=== PATIENT | male | born 1945 | race Caucasian/White ===

== ENCOUNTER → 2016-11-26 | Outpatient (CLI) | payer BC ==
[~2016-11-26] MED LIST: ALBU1AER9 INH; FLUT0.15 NAE; HYDR-5688 PO; LEVO150T9 PO; MONT1TAB3 PO; MULT-506 PO; SULF800T23 PO; SYMIN160 INH
--- NOTE | 2016-11-26 10:34 | DIAGNOSTIC IMAGING REPORT ---
CHEST 2 VIEWS ROUTINE HISTORY: R05 [id number] COMPARISON: Chest CT 10/28/2016 and chest x-ray 09/21/2013. FINDINGS: Multiple old, healed left rib fractures. Postoperative changes at the old, healed left clavicle fracture. No focal lung consolidations to suggest pneumonia. No evidence for pulmonary edema. The heart is stable in size. No pleural effusions. No pneumothorax. Faint nodular density within the right lung base on the frontal view likely represents a nipple shadow. IMPRESSION: No significant change compared to the prior study. No acute process. Electronically signed by: Napoleon Fishman M.D. 11/26/2016 10:33 AM Dictated Date/Time: 11/26/2016 10:31 AM
== END | disposition home or self-care (01) ==
LOC: C.RAD1850 10:15
PROVIDERS: ATTEND Internal Medicine Pulmonary Disease
DX: R05 Cough (principal)

== ENCOUNTER → 2017-02-03 | Outpatient (CLI) | payer BC ==
[2017-02-03 15:34] LABS: THYROID STIMULATING HORMONE 0.953 uIu/ml (0.300-4.500)
== END | disposition home or self-care (01) ==
LOC: C.LAB1850 13:34
PROVIDERS: ATTEND Family Medicine
DX: R94.6 Abnormal results of thyroid function studies (principal); R20.0 Anesthesia of skin

== ENCOUNTER → 2017-03-23 | Outpatient (CLI) | payer BC ==
[2017-03-23 16:35] LABS: BASO % 0.5 %; BASO ABS # 0.05 K/uL (0-0.2); COMPLETE YES; EOS % 2.4 %; HEMATOCRIT 45.3 % (42-52); IG% 0.3 %; LYMPH % 22.1 %; LYMPH ABS # 2.35 K/uL (1.2-3.4); MEAN CELL VOLUME 92.8 fL (80-100); MEAN CORPUSCULAR HEMOGLOBIN 30.7 pg (25-34); MEAN CORPUSCULAR HGB CONC 33.1 g/dl (32-36); MEAN PLATELET VOLUME 10.5 fL (7.4-10.4); MONO % 8.2 %; NEUT % 66.5 %; PLATELET COUNT 287 K/uL (130-400); RED BLOOD COUNT 4.88 M/uL (4.7-6.1); WHITE BLOOD COUNT 10.65 K/uL (4.8-10.8)
[2017-03-23 16:56] LABS: BLOOD UREA NITROGEN 19 mg/dl (7-18); BUN/CREATININE RATIO 14.6 (10-20); CALCIUM 8.7 mg/dl (8.5-10.1); CARBON DIOXIDE 30 mmol/L (21-32); CHLORIDE 108 mmol/L (98-107); GLUCOSE 130 mg/dl (70-99); POTASSIUM 4.4 mmol/L (3.5-5.1); SODIUM 141 mmol/L (136-145)
== END | disposition home or self-care (01) ==
LOC: C.LAB 16:11
PROVIDERS: ATTEND Surgery
DX: Z01.810 Encounter for preprocedural cardiovascular examination (principal); Z01.812 Encounter for preprocedural laboratory examination; K42.9 Umbilical hernia without obstruction or gangrene; I49.1 Atrial premature depolarization

== ENCOUNTER → 2017-03-25 | Day surgery (SDC) | payer BC ==
[2017-03-16 12:05] VITALS: Ht 182.9 cm; Wt 92.3 kg
[~2017-03-25] VITALS: Ht 182.9 cm; Wt 92.3 kg
[~2017-03-25] MED LIST changes: +ATROPINE SULFATE 0.1 MG/ML 5ML SYR IV PRN; +BUPIVACAINE/EPINEPHRINE 0.5% MPF 1:200,000 30 ML VIAL ONE; +CLINDAMYCIN PHOS 150 MG/ML 2 ML VIAL IV SCH; +DEXAMETHASONE SOD INJ 4 MG/ML VIAL ONE; +DiphenhydrAMINE HCL 50 MG/ML VIAL ONE; +EpHEDrine SULFATE INJ 50 MG/ML AMP IV PRN; +FENTANYL CITRATE INJ 50 MCG/1 ML 2 ML VIAL IV PRN; +FENTANYL CITRATE INJ 50 MCG/1 ML 2 ML VIAL ONE; +HYDROCODONE/ACETAMOPHEN 5/325MG TAB PO PRN; +LACTATED RINGER'S 1000ML 1,000 ML IV SCH; +LIDOCAINE HCL 2% 2 ML VIAL (20MG/ML) ONE; +MIDAZOLAM HCL 1 MG/ML 2ML VIAL ONE; +ONDANSETRON INJ 2 MG/ML 2 ML VIAL IV PRN; +ONDANSETRON INJ 2 MG/ML 2 ML VIAL ONE; +PROPOFOL IV EMULSION 10 MG/ML 20 ML VIAL IV ONE; +SODIUM CHLORIDE 0.9% 1000ML 1,000 ML IV SCH
--- NOTE | 2017-03-25 06:52 | History & Physical Bridge Note ---
H&P Re-Evaluation Bridge Note: I have examined the patient, reviewed the History & Physical and in the interval since the performance of the History & Physical I have noted the following changes of clinical significance: No changes noted
--- NOTE | 2017-03-25 07:54 | Discharge Instructions ---
Discharge Instructions Date of Service March 25, 2017. Admission Reason for Admission: Umbilical Hernia Discharge Discharge Diagnosis / Problem: Umbilical Hernia Discharge Goals Goal(s): Decrease discomfort, Improve function Activity Recommendations Activity Limitations: as noted below Lifting Limitations: no more than 10 pounds Exercise/Sports Limitations: until after follow-up appointment May Resume Sexual Activity: after follow-up appointment Shower/Bathe: tomorrow . Instructions / Follow-Up Instructions / Follow-Up Please follow-up with Dr. Noriega in the office in 1-2 weeks. Please call to make an appointment if you do not have one already. Any questions or concerns please call the office at [phone]. Current Hospital Diet Patient's current hospital diet: Discharge Diet Recommended Diet: Regular Diet Procedures Procedures Performed: Umbilical Hernia Open Repair Pending Studies Studies pending at discharge: no Medical Emergencies . Who to Call and When: Medical Emergencies: If at any time you feel your situation is an emergency, please call 911 immediately. . Non-Emergent Contact Non-Emergency issues call your: Primary Care Provider, Surgeon Call Non-Emergent contact if: temperature is above 101.5, your pain is not controlled, wound has increased drainage, wound has increased redness . "Provider Documentation" section prepared by Fiona Mcduffie. . VTE Core Measure Inpt VTE Proph given/why not?: SCD's [place] Drug Monitoring Program Search Results: patient reviewed within database, no issues identified
--- NOTE | 2017-03-25 08:00 | [facility] Operative Report ---
Operative Report Operative Date March 25, 2017. Pre-Operative Diagnosis Umbilical Hernia Post-Operative Diagnosis same Procedure(s) Performed umbilical hernia repair-no mesh Surgeon Dr. Noriega Geographical Historian Surgeon(s) Darren Mcduffie PA-C Estimated Blood Loss 5ml Findings small umbilical hernia with fat incarceration Specimens none per surgeon Anesthesia mac Complication(s) None Disposition Recovery Room / PACU I attest to the content of the Intraoperative Record and any orders documented therein. Any exceptions are noted below.
--- NOTE | 2017-03-25 08:33 | OPERATIVE REPORT ---
DATE OF OPERATION: 03/25/2017 PREOPERATIVE DIAGNOSIS: Umbilical hernia. POSTOPERATIVE DIAGNOSIS: Same with fat incarceration. PROCEDURE PERFORMED: Open umbilical hernia repair without mesh. SURGEON: Dr. Noriega. FIRE MANAGEMENT TECHNICIAN: Fiona Mcduffie PA-C. ESTIMATED BLOOD LOSS: Approximately 5 mL. COMPLICATIONS: No immediate. OPERATIVE NOTE: After informed consent was obtained, the patient was taken to the operating suite and placed in supine position. After successful placement of laryngeal mask airway the abdomen was shaved and sterilely prepped and draped in usual fashion. Curvilinear infraumbilical incision was made with a 15 blade scalpel. This was carried down through the soft tissue using electrocautery. We immediately encountered hernia sac which we opened. There was preperitoneal fat incarcerated within it. The defect was actually just inferior to the umbilical stalk. We therefore did not have to take down the umbilicus itself. Because of the very small hernia defect we used electrocautery to remove the incarcerated fat. There was adequate hemostasis. We were able to dunk the remainder of the fat back through the small 0.5 cm defect. I then closed the defect using 0 Ethibond in a [id number] fashion. The wound was then thoroughly irrigated and closed in 2 layers using 3-0 Vicryl and 4-0 Monocryl. Marcaine was injected around the incision for postoperative analgesia and skin glue used as dressing. The patient was awakened and extubated, and transferred to recovery in stable condition. I attest to the content of the Intraoperative Record and any orders documented therein. Any exceptio ns are noted below.
--- NOTE | 2017-03-25 08:49 | Anesthesia Progress Nt - [facility] ---
Anesthesia Post Op Note Date & Time March 25, 2017 at 08:49 Vital Signs Pain Intensity: 5 Vital Signs Past 12 Hours Date Time Temp Pulse Resp B/P Pulse Ox O2 Delivery O2 Flow Rate FiO2 03/25/17 07:50 36.6 56 12 129/79 96 Mask 15 03/25/17 06:27 36.7 58 16 138/85 95 Room Air Notes Mental Status: alert / awake / arousable, participated in evaluation Pt Amnestic to Procedure: Yes Nausea / Vomiting: adequately controlled Pain: adequately controlled Airway Patency, RR, SpO2: stable & adequate BP & HR: stable & adequate Hydration State: stable & adequate Anesthetic Complications: no major complications apparent
[2017-03-25 09:09] VITALS: TEMP 36.2
[2017-03-25 09:33] VITALS: BP 125/75; PULSE 50; O2SAT 93
== END | disposition home or self-care (01) ==
LOC: X.SURG 06:06
PROVIDERS: ATTEND Surgery
DX: K42.9 Umbilical hernia without obstruction or gangrene (principal); J45.909 Unspecified asthma, uncomplicated; E03.9 Hypothyroidism, unspecified; Z86.010 Personal history of colon polyps

== ENCOUNTER → 2017-06-13 | Outpatient (CLI) | payer BC ==
[~2017-06-13] MED LIST changes: -ATROPINE SULFATE 0.1 MG/ML 5ML SYR IV PRN; -BUPIVACAINE/EPINEPHRINE 0.5% MPF 1:200,000 30 ML VIAL ONE; -CLINDAMYCIN PHOS 150 MG/ML 2 ML VIAL IV SCH; -DEXAMETHASONE SOD INJ 4 MG/ML VIAL ONE; -DiphenhydrAMINE HCL 50 MG/ML VIAL ONE; -EpHEDrine SULFATE INJ 50 MG/ML AMP IV PRN; -FENTANYL CITRATE INJ 50 MCG/1 ML 2 ML VIAL IV PRN; -FENTANYL CITRATE INJ 50 MCG/1 ML 2 ML VIAL ONE; -HYDROCODONE/ACETAMOPHEN 5/325MG TAB PO PRN; -LACTATED RINGER'S 1000ML 1,000 ML IV SCH; -LIDOCAINE HCL 2% 2 ML VIAL (20MG/ML) ONE; -MIDAZOLAM HCL 1 MG/ML 2ML VIAL ONE; -ONDANSETRON INJ 2 MG/ML 2 ML VIAL IV PRN; -ONDANSETRON INJ 2 MG/ML 2 ML VIAL ONE; -PROPOFOL IV EMULSION 10 MG/ML 20 ML VIAL IV ONE; -SODIUM CHLORIDE 0.9% 1000ML 1,000 ML IV SCH
--- NOTE | 2017-06-13 12:33 | DIAGNOSTIC IMAGING REPORT ---
MRI OF THE LUMBAR SPINE WITHOUT CONTRAST CLINICAL HISTORY: Ataxia. Bilateral lower extremity numbness. COMPARISON STUDY: CT of the abdomen and pelvis October 26, 2007. TECHNIQUE: Utilizing a 1.5 Kaylah magnet and dedicated coil, multiplanar, multiecho imaging of the lumbar spine was performed without IV contrast. FINDINGS: For purposes of numbering on this exam, the L5-S1 disc space is assigned to axial image 27 of 30. There is 4 mm anterolisthesis of L5 on S1 due to bilateral L5 pars defects. This is similar to CT of October 26, 2007. There is no intracanalicular mass or fluid collection. No suspicious marrow replacement is present. Conus terminates at the upper L1 level. Paravertebral soft tissues are unremarkable. There are bilateral parapelvic cysts. L1-2: The central canal and neural foramen are patent. L2-3: There is minimal disc bulge, ligamentous hypertrophy and facet arthrosis. The central canal and neural foramen are patent. L3-4: There is mild disc bulge with ligamentous hypertrophy and facet arthrosis. The central canal, lateral recesses and neural foramen are patent. L4-5: There is slight anterolisthesis likely due to facet arthrosis. There is minimal disc bulge. Severe facet arthrosis is present. The central canal and lateral recesses are patent. There is moderate left and mild right neural foraminal stenosis. L5-S1: There is grade I anterolisthesis. There is facet arthrosis. Central canal is patent. There is mild narrowing of the left neural foramen. There is a left paracentral annular tear. IMPRESSION: 1. Grade I anterolisthesis of L5 on S1 due to bilateral L5 pars defects. 2. Patent central canal. Mild multilevel degenerative disc disease with several mild disc bulges. 3. Severe facet arthrosis at L4-L5 with resultant moderate left and mild right neural foraminal stenosis. 3. Electronically signed by: Owen Voss M.D. 06/13/2017 12:32 PM Dictated Date/Time: 06/13/2017 12:26 PM
== END | disposition home or self-care (01) ==
LOC: C.MRIBC 10:44
PROVIDERS: ATTEND Psychiatry & Neurology Neurology
DX: R27.0 Ataxia, unspecified (principal); R20.0 Anesthesia of skin; M47.816 Spondylosis without myelopathy or radiculopathy, lumbar region; M53.86 Other specified dorsopathies, lumbar region

== ENCOUNTER → 2017-07-19 | Outpatient (CLI) | payer BC ==
[2017-07-19 12:10] LABS: BASO % 0.4 %; BASO ABS # 0.03 K/uL (0-0.2); COMPLETE YES; EOS % 5.2 %; HEMATOCRIT 44.8 % (42-52); IG% 0.4 %; LYMPH % 19.5 %; LYMPH ABS # 1.51 K/uL (1.2-3.4); MEAN CORPUSCULAR HEMOGLOBIN 30.2 pg (25-34); MEAN CORPUSCULAR HGB CONC 32.8 g/dl (32-36); MONO % 9.3 %; NEUT % 65.2 %; PLATELET COUNT 267 K/uL (130-400); RED BLOOD COUNT 4.87 M/uL (4.7-6.1); WHITE BLOOD COUNT 7.75 K/uL (4.8-10.8)
[2017-07-19 12:31] LABS: ALKALINE PHOSPHATASE 72 U/L (45-117); ALT/SGPT 38 U/L (12-78); AST/SGOT 25 U/L (15-37); BLOOD UREA NITROGEN 17 mg/dl (7-18); BUN/CREATININE RATIO 17.4 (10-20); CARBON DIOXIDE 30 mmol/L (21-32); CHLORIDE 104 mmol/L (98-107); CHOLESTEROL 170 mg/dl (0-200); GLUCOSE 117 mg/dl (70-99); POTASSIUM 4.3 mmol/L (3.5-5.1); SODIUM 138 mmol/L (136-145); TRIGLYCERIDES 184 mg/dl (0-150); VERY LOW DENSITY LIPOPROT CALC 37 mg/dl
[2017-07-19 12:43] LABS: ALB/GLOB RATIO 1.1 (0.9-2); HDL CHOLESTEROL 43 mg/dl; LDL CHOLESTEROL CALCULATED 90 mg/dl; THYROID STIMULATING HORMONE 0.858 uIu/ml (0.300-4.500)
== END | disposition home or self-care (01) ==
LOC: C.LAB1850 10:27
PROVIDERS: ATTEND Nurse Practitioner Family
DX: J45.909 Unspecified asthma, uncomplicated (principal); E03.9 Hypothyroidism, unspecified; E78.1 Pure hyperglyceridemia

== ENCOUNTER 2017-07-25 11:38 | Day surgery (SDC) | payer BC ==
[2017-07-21 11:20] VITALS: Ht 182.9 cm; Wt 91.4 kg
[~2017-07-25] VITALS: Ht 182.9 cm; Wt 91.4 kg
[~2017-07-25 11:38] MED LIST changes: -HYDR-5688 PO; +LACTATED RINGER'S 1000ML 1,000 ML IV SCH; -SULF800T23 PO
[2017-07-25 12:28] VITALS: BP 142/72; PULSE 48; TEMP 36.7; O2SAT 94
[2017-07-25] MEDS ORDERED: ATROPINE SULFATE 0.1 MG/ML 5ML SYR IV PRN ×2 (13:00→13:15)
[2017-07-25] MEDS ORDERED: ONDANSETRON INJ 2 MG/ML 2 ML VIAL IV PRN ×3 (13:00→15:15)
[2017-07-25] MEDS ORDERED: FENTANYL CITRATE INJ 50 MCG/1 ML 2 ML VIAL IV PRN ×2 (13:00→13:15)
[2017-07-25] MEDS ORDERED: EpHEDrine SULFATE INJ 50 MG/ML AMP IV PRN ×2 (13:00→13:15)
[2017-07-25] MEDS ORDERED: BUPIVACAINE/EPINEPHRINE 0.5% MPF 1:200,000 30 ML VIAL ONE (13:49)
[2017-07-25] MEDS ORDERED: SUCCINYLCHOLINE CHLORIDE 20 MG/ML 10 ML VIAL IV ONE (13:52)
[2017-07-25] MEDS ORDERED: NEOSTIGMINE METHYLSULFATE 5 MG/5 ML SYR ONE (13:52)
[2017-07-25] MEDS ORDERED: PROPOFOL IV EMULSION 10 MG/ML 20 ML VIAL IV ONE (13:52)
[2017-07-25] MEDS ORDERED: DEXAMETHASONE SOD INJ 4 MG/ML VIAL ONE (13:52)
[2017-07-25] MEDS ORDERED: LIDOCAINE HCL 2% 2 ML VIAL (20MG/ML) ONE (13:52)
[2017-07-25] MEDS ORDERED: GLYCOPYRROLATE INJ 0.2 MG/ML VIAL ONE ×2 (13:52→14:33)
[2017-07-25] MEDS ORDERED: FENTANYL CITRATE INJ 50 MCG/1 ML 2 ML VIAL ONE (13:52)
[2017-07-25] MEDS ORDERED: ONDANSETRON INJ 2 MG/ML 2 ML VIAL ONE (13:52)
[2017-07-25] MEDS ORDERED: PHENYLEPHRINE HCL INJ 10 MG/ML VIAL ONE (13:52)
[2017-07-25] MEDS ORDERED: ROCURONIUM BROMIDE 10 MG/ML 5 ML VIAL IV ONE (13:52)
[2017-07-25] MEDS ORDERED: EpHEDrine SULFATE INJ 50 MG/ML AMP ONE (13:52)
[2017-07-25] MEDS ORDERED: MIDAZOLAM HCL 1 MG/ML 2ML VIAL ONE (13:52)
--- NOTE | 2017-07-25 13:53 | [facility] Operative Report ---
Operative Report Operative Date Jul 25, 2017. Pre-Operative Diagnosis lymphoma/need for IV access Post-Operative Diagnosis same Procedure(s) Performed left subclavian mediport insertion under fluoro Surgeon josie Estimated Blood Loss 5 cc Findings essentially normal anatomy Anesthesia MAC Complication(s) None Disposition Recovery Room / PACU Description of Procedure After informed consent was obtained the patient was taken the operating suite and placed in supine position. Both arms were tucked and a rolled towel was placed between the shoulder blades. IV sedation was administered and titrated to effect. The left upper chest wall was sterilely prepped and draped usual fashion. I used plain Marcaine to create a field block over the area of the Mediport pocket as well as up to the periosteum of the left clavicle. A horizontal incision was made a 15 blade scalpel and carried down to the pectoralis fascia using electrocautery. Blunt finger dissection was used to create a small pocket to house the port itself. Then using an 18-gauge finder needle accessed left subclavian vein without difficulty. We advanced a guidewire under fluoroscopy. Originally it went up into the neck but under active fluoroscopy was able to withdraw it and gently advanced in the superior vena cava. We then removed the needle leaving the wire behind. I then advanced a vascular dilator with peel-away sheath over the guidewire again under fluoroscopy. We measured the catheter, connected it to the port itself and placed the port into the pocket. I then withdrew the guidewire as well as the vascular dilator leaving the sheath behind. We advanced the catheter into the peel-away sheath into the superior vena cava. We then peeled away the sheath leaving the catheter behind. The port itself flushed easily with heparin solution. We did flush prior to placement as well. We are also able to withdrawal dark venous blood without difficulty. We then irrigated the pocket. I secured the Mediport to the pectoralis fascia using #2 Ethibond with 3 point fixation. We then closed the wound in 2 layers using 3-0 Monocryl for the deep layer and 3-0 Monocryl for the skin. A sterile dressing was applied. Patient was awaken transferred recovery in stable condition. Postoperative portable chest x-ray is currently pending to verify catheter placement and rule out pneumothorax I attest to the content of the Intraoperative Record and any orders documented therein. Any exceptions are noted below.
[2017-07-25] MEDS ORDERED: CLINDAMYCIN IV 900 MG in DEXTROSE 5% ADD-VANTAGE 100ML 100 ML IV ONE (14:00)
--- NOTE | 2017-07-25 15:01 | [facility] Operative Report ---
Operative Report Operative Date Jul 25, 2017. 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 Procedure(s) Performed Umbilical Wound Exploration with Removal of Suture Granuloma, excision of Cutaneous Fistula. Surgeon Long Lines Operator Surgeon(s) Servando Almaraz PA-C Estimated Blood Loss 5ml Findings infected suture granuloma with associated cutaneous fistula. Specimens Culture set 1. Removal of suture granuloma abdomen for gram stain, routine c+s , anaerobic. Permenant- A. Umbilical Suture B. Umbilical Fistula Anesthesia MAC Disposition Recovery Room / PACU Description of Procedure After informed consent was obtained the patient was taken the operating suite placed in supine position. After successful placement of a laryngeal mask airway the umbilical area was shaved and sterilely prepped and draped in usual fashion. I Made an infraumbilical incision with 15 blade scalpel through his old recent scar line. We carried this down through the soft tissue using electrocautery down to the fascia. I then used a Rosette clamp come above the umbilicus. As we came through the newly attached umbilical stalk we encountered some purulent fluid associated with a large Ethibond suture knot. The arms of the suture had each created their own fistulous tract to the skin. There were 2 separate fistulous tracts associated with this granuloma. I removed the all the Ethibond sutures and thoroughly irrigated the wound. Despite the previous hernia repair being intact ( after removing the ethibond) I did oversew the area with an 0 PDS in simple interrupted fashion. We then excised the fistulous tracts with sharp knife excision full-thickness. On both the skin side as well as the subcutaneous side I closed either end of the fistulous tracts using 3-0 Monocryl in simple interrupted fashion. Copious amounts of irrigation were again used. I then reapproximated the umbilicus back to the fascia using 0 Vicryl in simple interrupted fashion. We then closed the wound with 3-0 Vicryl and 4-0 Monocryl for the skin. Marcaine was injected around for postoperative analgesia and a sterile dressing was applied. The suture that was removed was sent for Gram stain culture and sensitivity. The patient was awaken extubated and transferred recovery in stable condition I attest to the content of the Intraoperative Record and any orders documented therein. Any exceptions are noted below.
[2017-07-25] MEDS ORDERED: SODIUM CHLORIDE 0.9% 1000ML 1,000 ML IV SCH (15:04)
[2017-07-25] MEDS ORDERED: SULF800T23 PO (15:05)
[2017-07-25] MEDS ORDERED: HYDR-5688 PO (15:05)
--- NOTE | 2017-07-25 15:07 | Discharge Instructions ---
Discharge Instructions Date of Service Jul 25, 2017. Visit Reason for Visit: Non-Healing Surgical Wound -Umbilical Discharge Discharge Diagnosis / Problem: excision of foreign body/granuloma Discharge Goals Goal(s): Decrease discomfort Activity Recommendations Activity Limitations: as noted below Lifting Limitations: no more than 10 pounds Shower/Bathe: no limitations (ok to shower ocer bandage, it is waterproof, remove bandage in 2 days) Anesthesia . Post Anesthesia Instructions: If you have had General Anesthesia or IV Sedation: * Do not drive today. * Resume driving when surgeon permits. * Do not make important decisions or sign legal documents today. * Call surgeon for: 1. Temperature elevations greater than 101 degrees F. 2. Uncontrollable pain. 3. Excessive bleeding. 4. Persistent nausea and vomiting. 5. Medication intolerance (nausea, vomiting or rash). * For nausea and vomiting use only clear liquids such as: tea, soda, bouillon until nausea subsides, then gradually increase diet as tolerated. * If you have any concerns or questions, call your surgeon's office. If physician is unavailable and it is an emergency, call 911 or go to the nearest emergency room. . Instructions / Follow-Up Instructions / Follow-Up Dr. Noriega as planned, call [phone] for any questions Diet Recommendations Recommended Home Diet: no limitations Procedures Procedures Performed: Umbilical Wound Exploration with Removal of Suture Granuloma, excision of Cutaneous Fistula. Pending Studies Studies pending at discharge: no Medical Emergencies . Who to Call and When: Medical Emergencies: If at any time you feel your situation is an emergency, please call 911 immediately. . Non-Emergent Contact Non-Emergency issues call your: Surgeon Call Non-Emergent contact if: you have a fever, temperature is above 101.5, your pain is not controlled, wound has increased redness, you have any medication questions . . "Provider Documentation" section prepared by Davon Almaraz. .
[2017-07-25] MEDS ORDERED: HYDROCODONE/ACETAMOPHEN 5/325MG TAB PO PRN ×2 (15:15)
--- NOTE | 2017-07-25 15:50 | Anesthesiology Progress Note ---
Anesthesia Post Op Note Date & Time Jul 25, 2017 at 15:50 Vital Signs Pain Intensity: 4 Vital Signs Past 12 Hours Date Time Temp Pulse Resp B/P (MAP) Pulse Ox O2 Delivery O2 Flow Rate FiO2 07/25/17 15:30 65 16 126/61 93 Oxymask 10 07/25/17 15:20 60 19 129/72 94 Oxymask 10 07/25/17 15:10 68 15 134/91 93 Oxymask 10 07/25/17 15:04 36.1 75 16 147/77 95 Oxymask 10 07/25/17 12:28 36.7 48 18 142/72 (95) 94 Room Air Notes Mental Status: alert / awake / arousable, participated in evaluation Pt Amnestic to Procedure: Yes Nausea / Vomiting: adequately controlled Pain: adequately controlled Airway Patency, RR, SpO2: stable & adequate BP & HR: stable & adequate Hydration State: stable & adequate Anesthetic Complications: no major complications apparent
[2017-07-25 16:05] VITALS: BP 125/65; PULSE 53; TEMP 36.5; O2SAT 93
[2017-07-25 16:35] VITALS: BP 129/68; PULSE 81; TEMP 37.2; O2SAT 94
[2017-07-25 17:05] VITALS: BP 115/69; PULSE 65; TEMP 36.4; O2SAT 96
[2017-07-25] MEDS ORDERED: TAMSULOSIN HCL 0.4 MG CAP PO ONE (18:15)
== END 2017-07-25 18:50 | disposition home or self-care (01) ==
LOC: C.ACU 11:38
PROVIDERS: ATTEND Surgery
DX: T81.89XA Other complications of procedures, not elsewhere classified, initial encounter (principal); Y83.8 Other surgical procedures as the cause of abnormal reaction of the patient, or of later complication, without mention of misadventure at the time of the procedure; L98.8 Other specified disorders of the skin and subcutaneous tissue; J45.909 Unspecified asthma, uncomplicated; E78.1 Pure hyperglyceridemia; E03.9 Hypothyroidism, unspecified; E55.9 Vitamin D deficiency, unspecified; Z80.1 Family history of malignant neoplasm of trachea, bronchus and lung; Z82.49 Family history of ischemic heart disease and other diseases of the circulatory system; Z83.3 Family history of diabetes mellitus; Z79.899 Other long term (current) drug therapy

== ENCOUNTER → 2017-08-24 | Outpatient (CLI) | payer BC ==
[~2017-08-24] MED LIST changes: +HYDR-5688 PO; -LACTATED RINGER'S 1000ML 1,000 ML IV SCH; +SULF800T23 PO
--- NOTE | 2017-08-24 12:42 | DIAGNOSTIC IMAGING REPORT ---
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 FINDINGS: On the right, there is a thick walled, predominantly anechoic and likely cystic nodule measuring 23 x 20 x 16 mm. Given the clinical history, this could represent an abscess. A necrotic neoplasm could appear similar. On the left, there is a nonspecific hypoechoic 5 x 3 x 3 mm left parotid nodule. IMPRESSION: 1. Complex cystic thick walled right parotid nodule measuring 23 x 20 x 16 mm. 2. 5 mm hypoechoic left parotid gland nodule Electronically signed by: Juan Diego Hernandez M.D. 08/24/2017 12:40 PM Dictated Date/Time: 08/24/2017 12:30 PM
== END | disposition home or self-care (01) ==
LOC: C.ULTR 12:00
PROVIDERS: ATTEND Family Medicine
DX: K11.20 Sialoadenitis, unspecified (principal); K11.8 Other diseases of salivary glands

== ENCOUNTER → 2017-09-02 | Outpatient (CLI) | payer BC ==
[~2017-09-02] MED LIST changes: +OPTIRAY 320 IV PRN
--- NOTE | 2017-09-02 13:42 | DIAGNOSTIC IMAGING REPORT ---
SOFT TISSUE NECK WITH HISTORY: 72 years-old Male K11.8 Nodule of parotid glandf/u to nodule noted on ultrasound w follow-up study to assess right parotid lesion measuring up to 23 mm on comparison ultrasound COMPARISON: Ultrasound 08/24/2017 TECHNIQUE: Multiple axial CT images of the soft tissues of the neck were obtained following the intravenous administration of 93 mL Optiray 320. A dose lowering technique was used consistent with the principals of ALARA. FINDINGS: The oral pharynx and hypopharynx are patent. The vallecula and appear piriform sinuses are patent. Epiglottis, aryepiglottic folds and true vocal cords appear to be within normal limits. Subglottic airway is patent. There is a 5 x 5 x 6 mm lesion of the superficial left parotid gland on image 113 of series 3 which essentially fatty attenuating suggesting physiologic parotid lymph node. The left parotid is otherwise unremarkable. Evaluation of the right parotid gland is limited secondary to streak artifact from dental amalgam hardware. There is a thick-walled peripherally enhancing centrally low attenuating lesion of the superficial lobe right parotid gland, 1.0 x 1.1 x 2.3 cm in AP, transverse and craniocaudal dimensions as seen on image 158 of series 3. No associated calcifications identified. No erosion into adjacent structures. The bilateral submandibular and sublingual glands appear normal. Hudson tonsils are within normal limits. Mild prominence of the lingual tonsils. Heterogeneous soft tissue attenuating structure of the left nasopharynx and posterior left nasal choana is seen measuring 3.5 x 1.8 x 2.7 cm in AP, transverse and coronal caudal dimensions with smooth remodeling of the adjacent medial wall the left maxillary sinus. Mild/moderate bubbly secretions of the maxillary sinuses are noted. Moderate to severe frontal, sphenoid and ethmoid sinus disease. Mastoid air cells and middle ear cavities are clear. Multilevel degenerative changes of the cervical spine. Centrilobular emphysematous changes of the lung apices. Mild atrophy chronic plaquing of the carotid bulbs. Imaged intracranial structures are unremarkable. Multilevel degenerative changes of the cervical spine. IMPRESSION: 1. Limited evaluation of the right parotid gland secondary to prominent streak artifact from right mandibular dental amalgam. Within the limitations of the study, there is a 2.3 cm peripherally enhancing centrally low attenuating lesion again seen within the superficial gland. Differential considerations would include necrotic lymph node, benign mixed tumor, Warthin tumor among other etiologies. Further evaluation with tissue sampling recommended. 2. Nodule of the left superficial parotid lobe, 5 mm suggests physiologic lymph node. 3. Heterogeneous soft tissue attenuating lesion of the left nasopharynx and left posterior nasal choana measuring up to 3.5 cm suggests sinonasal polyp. Further evaluation with direct visualization is recommended. 4. Moderate to severe paranasal sinus disease as above. The above report was generated using voice recognition software. It may contain grammatical, syntax or spelling errors. Electronically signed by: Kirby Castaneda M.D. 09/02/2017 1:40 PM Dictated Date/Time: 09/02/2017 1:27 PM
== END | disposition home or self-care (01) ==
LOC: C.CTS 12:54
PROVIDERS: ATTEND Family Medicine
DX: K11.8 Other diseases of salivary glands (principal); R93.0 Abnormal findings on diagnostic imaging of skull and head, not elsewhere classified

== ENCOUNTER → 2017-09-08 | Outpatient (CLI) | payer BC ==
[~2017-09-08] MED LIST changes: -OPTIRAY 320 IV PRN
--- NOTE | 2017-09-08 11:05 | DIAGNOSTIC IMAGING REPORT ---
ULTRASOUND GUIDED FINE NEEDLE ASPIRATION OF RIGHT PAROTID GLAND MASS CLINICAL HISTORY: Right parotid gland mass. COMPARISON STUDY: Neck ultrasound August 24, [address] of the neck September 02, 2017. PROCEDURE: Sonography of the right parotid gland demonstrated the previously described right parotid gland complex cystic lesion. On this exam, this lesion measures approximately 1.4 x 1.3 cm. It previously measured approximately 1.8 x 1.5 cm. This has likely decreased in size. This was targeted for fine needle aspiration. The procedure, risks and benefits were discussed with the patient and informed written consent was obtained. The procedure was performed by Dr. Voss following a timeout. Skin was prepped and draped in sterile fashion and local anesthesia was achieved with 1% lidocaine. Under direct ultrasound guidance, 3 25-gauge fine needle aspirations of this lesion were performed. The second pass revealed cloudy, possibly purulent, material. An inflammatory process was preliminarily suspected by pathology. The patient tolerated the procedure well and no immediate complications were evident. IMPRESSION: Ultrasound-guided fine needle aspiration of complex 1.4 cm cystic right parotid gland lesion. Probable slight decrease in size of lesion since exam of August 24, 2017. Preliminary pathology results raise the possibility of an inflammatory/infectious process. Pending final pathology results, consideration could be given to short-term sonographic follow-up to ensure continued decrease in size/resolution. Electronically signed by: Owen Voss M.D. 09/08/2017 11:04 AM Dictated Date/Time: 09/08/2017 10:57 AM
== END | disposition home or self-care (01) ==
LOC: C.ULTR 09:30
DX: K11.8 Other diseases of salivary glands (principal)

== ENCOUNTER → 2017-10-03 | Outpatient (CLI) | payer BC ==
--- NOTE | 2017-10-03 12:12 | DIAGNOSTIC IMAGING REPORT ---
FUSION CT SINUSES W/O HISTORY: 72 years-old Male J32.9 Chronic sinusitis history of prior sinus surgery COMPARISON: CT head 09/25/2013, CT maxillofacial 02/10/2012 TECHNIQUE: Multiple axial CT images of the paranasal sinuses were obtained without IV contrast. [employer] axial images also obtained. A dose lowering technique was used consistent with the principals of HARI. FINDINGS: Mastoid air cells and middle ear cavities are clear. Postoperative changes compatible with bilateral maxillary antrostomy. Mild mucoperiosteal thickening of the left with mild to moderate medial periosteal thickening on the right maxillary sinuses. There is mild mucosal thickening of the left frontal sinus, notably inferiorly. There is severe sinus disease of the right frontal sinus which is nearly completely opacified with dense likely inspissated mucosal debris. Moderate mucosal thickening is noted within the ethmoid air cells. Sphenoethmoidal recesses are patent. There is mucosal thickening of the bilateral frontoethmoidal recesses. Bilateral maxillary ostiomeatal units are widely patent. No Estuardo cell or large domingo bullosa identified. The melyssa ethan appears normal. Soft tissue attenuating structure measuring 2.8 x 1.4 x 1.8 cm involves the left posterior nasal turbinate extending into the left posterior nasal aperture as seen on image 180 of series 3 suggesting a sinonasal polyp. Sigmoidal curvature of the nasal septum is noted. No facial bone fracture or dislocation identified. Degenerative changes of the cervical spine are noted. Image intracranial structures demonstrate no acute amount. Mild to moderate cerebellar and cerebral atrophy is noted. The soft tissues are unremarkable. There has been prior bilateral cataract repair. IMPRESSION: 1. Prior bilateral maxillary antrostomy. 2. Chronic bilateral paranasal sinus disease as above with severe near complete opacification of the right frontal sinus containing dense material, likely inspissated mucosal debris. 3. Soft tissue attenuating lesion of the left nasopharynx as above measuring up to 2.8 cm extends into the left posterior nasal aperture suggesting a sinonasal polyp. Correlate with direct visualization. The above report was generated using voice recognition software. It may contain grammatical, syntax or spelling errors. Electronically signed by: Kirby Castaneda M.D. 10/03/2017 12:11 PM Dictated Date/Time: 10/03/2017 12:00 PM
== END | disposition home or self-care (01) ==
LOC: C.CTS 11:12
DX: J32.9 Chronic sinusitis, unspecified (principal); J34.89 Other specified disorders of nose and nasal sinuses

== ENCOUNTER → 2017-12-19 | Outpatient (CLI) | payer BC ==
[~2017-12-19] MED LIST changes: +OMEG10007 PO; +VNTHFA/IN INH
--- NOTE | 2017-12-19 11:05 | DIAGNOSTIC IMAGING REPORT ---
NECK ULTRASOUND HISTORY: Right parotid gland Lesion. Follow-up. COMPARISON: Right parotid ultrasound-guided FNA 09/08/2017. FINDINGS: Real-time sonographic imaging of the bilateral parotid glands was performed. No masses or fluid collections identified. Specifically, the abnormality within the right parotid gland has resolved. IMPRESSION: Normal right parotid gland. Electronically signed by: Napoleon Fishman M.D. 12/19/2017 11:03 AM Dictated Date/Time: 12/19/2017 11:01 AM
== END | disposition home or self-care (01) ==
LOC: C.ULTR 10:03
DX: J32.9 Chronic sinusitis, unspecified (principal)

== ENCOUNTER → 2017-12-24 | Outpatient (CLI) | payer BC ==
[~2017-12-24] MED LIST changes: -ALBU1AER9 INH; -HYDR-5688 PO; -SULF800T23 PO
[2017-12-24 10:23] LABS: BASO % 0.4 %; BASO ABS # 0.04 K/uL (0-0.2); EOS % 1.6 %; EOS ABS # 0.17 K/uL (0-0.5); HEMATOCRIT 45.9 % (42-52); HEMOGLOBIN 15.1 g/dL (14.0-18.0); IG# 0.04 K/uL (0.00-0.02); LYMPH % 22.1 %; LYMPH ABS # 2.32 K/uL (1.2-3.4); MEAN CELL VOLUME 93.7 fL (80-100); MEAN CORPUSCULAR HEMOGLOBIN 30.8 pg (25-34); MEAN CORPUSCULAR HGB CONC 32.9 g/dl (32-36); MEAN PLATELET VOLUME 11.1 fL (7.4-10.4); MONO % 10.6 %; MONO ABS # 1.11 K/uL (0.11-0.59); NEUT % 64.9 %; NEUT ABS # 6.81 K/uL (1.4-6.5); PLATELET COUNT 278 K/uL (130-400); RED CELL DISTRIBUTION WIDTH SD 44.8 fL (36.4-46.3); WHITE BLOOD COUNT 10.49 K/uL (4.8-10.8)
[2017-12-24 10:29] LABS: POTASSIUM 3.6 mmol/L (3.5-5.1)
[2017-12-24 10:37] LABS: PTT PATIENT 22.9 SECONDS (21.0-31.0)
== END ==
LOC: C.LAB1850 07:57
DX: Z01.818 Encounter for other preprocedural examination (principal)

== ENCOUNTER → 2017-12-26 | Day surgery (SDC) | payer BC ==
[2017-12-19 14:01] VITALS: Ht 182.9 cm; Wt 92.7 kg
[~2017-12-26] VITALS: Ht 182.9 cm; Wt 92.7 kg
[~2017-12-26] MED LIST changes: +ACETAMINOPHEN 1000 MG/100 ML IV IV ONE; +ATROPINE SULFATE 0.1 MG/ML 5ML SYR IV PRN; +CLINDAMYCIN 900MG IV SCH; +CLINDAMYCIN IV 900 MG in DEXTROSE 5% 50ML 44 ML IV SCH; +DEXAMETHASONE SOD INJ 4 MG/ML VIAL ONE; +EpHEDrine SULFATE INJ 50 MG/ML AMP IV PRN; +EpHEDrine SULFATE INJ 50 MG/ML AMP ONE; +EpINEphrine INJ 1MG/ML AMP 1 MG/ML AMP ONE; +FENTANYL CITRATE INJ 50 MCG/1 ML 2 ML VIAL IV PRN; +FENTANYL CITRATE INJ 50 MCG/1 ML 2 ML VIAL ONE; +GLYCOPYRROLATE INJ 0.2 MG/ML VIAL ONE; +HYDROCODONE/ACETAMIN 5/325MG TAB PO PRN; +LIDOCAINE 4% MPF SOAK 5 ML = 1 DOSE TOP ONE; +LIDOCAINE HCL 2% 2 ML VIAL (20MG/ML) ONE; +LIDOCAINE/EPINEPHRINE 1% 20 ML VIAL ONE; +MIDAZOLAM HCL 1 MG/ML 2ML VIAL ONE; +NEOSTIGMINE METHYLSULFATE 5 MG/5 ML SYR ONE; +ONDANSETRON INJ 2 MG/ML 2 ML VIAL IV PRN; +ONDANSETRON INJ 2 MG/ML 2 ML VIAL ONE; +OXYMETAZOLINE HCL 0.05% NA SPR 15 ML BTL PRN; +OXYMETAZOLINE HCL 0.05% NA SPR 15 ML BTL SCH; +PROPOFOL IV EMULSION 10 MG/ML 20 ML VIAL IV ONE; +SODIUM CHLORIDE 0.9% INJ 10 ML VIAL ONE; +TRIAMCINOLONE ACET 40 MG/ML VIAL ONE
--- NOTE | 2017-12-26 13:14 | History and Physical: Surg Cnt ---
History & Physical Date Dec 26, 2017. Chief Complaint CHRONIC SINUSITIS, SEPTAL DEVIATION, BILATERAL INFERIOR TURBINATE HYPERTROPHY S/ P B FESS IN THE PAST WITH DR. LINK History of Present Illness The patient is a 72 year old male with complaints of CHRONIC SINUSITIS, SEPTAL DEVIATION, BILATERAL INFERIOR TURBINATE HYPERTROPHY S/P B FESS IN THE PAST WITH DR. LINK WITH SYMPTOMS DESPITE [employer] RX. Past Medical/Surgical History PMH: ABOVE, ALLERGIC RHINITIS, ASTHMA, PAROTID MASS, VITAMIN D DEFICIENCY, SPONTANEOUS PNEUMOTHORAX PSH: ABOVE, S/P UMBILICAL HERNIA REPAIR, S/P KNEE SURGERY, S/P SHOULDER SURGERY Additional History Hepatic Disease: No Endocrine Disorder: No Kidney Disease: No Hypertension: No Heart Disease: No Bleeding Tendencies: No Infectious Diseases: No Allergies Coded Allergies: Amoxicillin (Verified Allergy, Unknown, ANAPHYLAXIS, 12/26/17) Penicillins (Unverified Allergy, Unknown, ANAPHYLAXIS, 12/26/17) Home Medications Scheduled Budesonide/Formoterol Fumarate (Symbicort 160/4.5 Inhaler), 2 PUFFS INH BID Fluticasone Propionate (Nasal) (Flonase Allergy Relief), 1 SPRAY AMNJINDER BID Levothyroxine Sodium (Levothyroxine Sodium), 150 MCG PO QAM Montelukast Sodium (Singulair), 10 MG PO HS Multivitamin (Multivitamin), 1 TAB PO LUNCH Scheduled PRN Albuterol Hfa (Ventolin Hfa), 2-4 PUFFS INH Q6H PRN for SOB/Wheezing Miscellaneous Medications Fish Oil ([place]-3), 1 CAP PO Physical Examination Skin: warm/dry, no rash Eyes: normal inspection, EOMI, sclerae normal ENT: + pertinent finding (L DNS, R>L ITH, L>R NASAL POLYPOSIS) Head: normocephalic, atraumatic Neck: supple, no adenopathy, trachea midline Respiratory/Chest: lungs clear, normal breath sounds, no respiratory distress Cardiovascular: regular rate, rhythm, no edema, no murmur Neurologic/Psych: no motor/sensory deficits, alert, normal reflexes, oriented x 3 Diagnosis CHRONIC SINUSITIS, SEPTAL DEVIATION, BILATERAL INFERIOR TURBINATE HYPERTROPHY S/ P B FESS IN THE PAST WITH DR. LINK Plan of Treatment IMAGE-GUIDED REVISION B FESS/SEPTOPLASTY/INFERIOR TURBINATE REDUCTION
--- NOTE | 2017-12-26 14:22 | [facility] Operative Report ---
Operative Report Operative Date Dec 26, 2017. Pre-Operative Diagnosis Chronic Sinusitis, Allergic Rhinitis, Acquired Deviated Nasal Septum, Hypertrophy of Nasal Turbinates Post-Operative Diagnosis Same Procedure(s) Performed Image Guided Revision Bilateral Endoscopic Sinus Surgery, Septoplasty, Bilateral Inferior Turbinate Reduction Surgeon Dr. Petty Molded Goods Operator Surgeon(s) None Estimated Blood Loss 10 mL Findings 1. LARGE POLYP EMANATING FROM THE MEDIAL ASPECT OF THE LEFT MIDDLE TURBINATE AND COMPLETELY FILLING THE POSTERIOR NASAL CAVITY AND NASOPHARYNX 2. POLYP IN RIGHT ETHMOID SINUS 3. MODERATE L DNS 4. R>L ITH 5. MUCOSAL THICKENING BILATERAL FRONTAL AND ETHMOID SINUSES WITH PURULENCE WITHIN RIGHT FRONTAL SINUS Specimens A. Left Nasal Polyp B. Right Ethmoid Polyp Anesthesia Type General I attest to the content of the Intraoperative Record and any orders documented therein. Any exceptions are noted below.
--- NOTE | 2017-12-26 14:27 | Discharge Instructions ---
Discharge Instructions Date of Service Dec 26, 2017. Admission Reason for Admission: Chronic Sinusitis, Allergic Rhinitis Discharge Discharge Diagnosis / Problem: SAME Discharge Goals Goal(s): Therapeutic intervention Activity Recommendations Activity Limitations: as noted below LIGHT ACTIVITY AND NO NOSE BLOWING FOR 2 WEEKS; NO DRIVING WHILE ON [place]CO . Current Hospital Diet Patient's current hospital diet: Discharge Diet Recommended Diet: Regular Diet Procedures Procedures Performed: Image Guided Revision Bilateral Endoscopic Sinus Surgery, Septoplasty, Bilateral Inferior Turbinate Reduction Pending Studies Studies pending at discharge: no Medical Emergencies . Who to Call and When: Medical Emergencies: If at any time you feel your situation is an emergency, please call 911 immediately. . Non-Emergent Contact Non-Emergency issues call your: Surgeon . . "Provider Documentation" section prepared by Joe Petyt. . VTE Core Measure Inpt VTE Proph given/why not?: SCD's
[2017-12-26 15:10] VITALS: TEMP 36.7
--- NOTE | 2017-12-26 15:14 | OPERATIVE REPORT ---
DATE OF OPERATION: 12/26/2017 PREOPERATIVE DIAGNOSES: 1. Chronic polypoid rhinosinusitis. 2. Left septal deviation. 3. Right greater than left inferior turbinate hypertrophy. POSTOPERATIVE DIAGNOSES: 1. Chronic polypoid rhinosinusitis. 2. Left septal deviation. 3. Right greater than left inferior turbinate hypertrophy. PROCEDURES: Image guided bilateral endoscopic sinus surgery consisting of: 1. Bilateral revision complete ethmoidectomies. 2. Bilateral revision frontal sinusotomies. 3. Revision septoplasty. 4. Revision bilateral inferior turbinate outfracture and turbinoplasty. SURGEON: Dr. Petty. ANESTHESIA: General endotracheal. ESTIMATED BLOOD LOSS: 10 mL. FINDINGS: 1. Large left posterior nasal cavity polyp emanating from the medial aspect of the left middle turbinate completely blocking the nasal cavity and nasopharynx. 2. Right greater than left ethmoid polyposis. 3. Right frontal sinus purulence. 4. Moderate left septal deviation. 5. Right greater than left inferior turbinate hypertrophy. SPECIMENS: Left posterior nasal cavity polyp and right ethmoid sinus polyp sent separately for permanent pathological assessment. COMPLICATIONS: None. INDICATIONS FOR THE PROCEDURE: The patient is a very pleasant 72-year-old male with a history of chronic polypoid rhinosinusitis who underwent previous bilateral endoscopic sinus surgery, septoplasty and inferior turbinate reduction by Dr. Small in the past who has had recurrent disease with symptoms despite maximal medical therapy consisting of systemic antibiotics and steroids. Posttreatment CT scan of the sinuses revealed right greater than left frontal sinus disease as well as bilateral ethmoid sinus disease with a large polyp emanating off the medial aspect of the left middle turbinate and completely filling the posterior nasal cavity and blocking the choana on that side. In addition, the patient has left septal deviation, right greater than left inferior turbinate hypertrophy. He presents for the above-mentioned procedures on an outpatient elective basis. DESCRIPTION OF PROCEDURE: After informed consent has been obtained from the patient, the patient was wheeled to the operating room and placed on the operating table in supine position. Monitors were placed. After induction of general endotracheal anesthesia, the patient was prepped in the usual fashion for image guided bilateral endoscopic sinus surgery. The [email or web address] headset was placed over the forehead and was registered, calibrated and verified and used throughout the case. Lidocaine and epinephrine pledgets were placed in the bilateral nasal cavities and pressure applied. The left-sided pledgets were removed. There was a large polyp filling the entire nasal cavity posteriorly and blocking the entrance into the nasopharynx via the choana. This was injected with 1% lidocaine with 1:100,000 epinephrine. The patient had previous nasal antral window and maxillary antrostomy surgery on that side and the mucosa of the maxillary sinus was completely normal. He also had polyposis within the left ethmoid sinus and this was injected with 1% lidocaine with 1:100,000 epinephrine. A lidocaine and epinephrine pledget was then placed into the left middle meatus. On the right hand side, there was also polyposis involving the right ethmoid sinus which was injected with 1% lidocaine with 1:100,000 epinephrine. Lidocaine and epinephrine pledget was then placed into the right middle meatus. The left side pledget was removed. Straight Ronnie-Cut forceps and straight Blakesley forceps was used to remove a large portion of the posterior nasal cavity polyp which was sent off for permanent pathological assessment. Powered instrumentation was then used to remove the rest of the polypoid tissue completely removing it in its entirety and it seemed to emanate from the medial aspect of the middle turbinate. Therefore, the inferior and medial aspect of the middle turbinates were removed using powered instrumentation. A revision complete ethmoidectomy was then performed using powered instrumentation. Using a frontal sinus suction and image guidance, the left frontal sinus was cannulated. A 7 frontal sinus balloon was then inserted and inflated to 12 atmospheres of pressure in 2 different locations to dilate the right frontal recess tract. Polypoid tissue was removed using powered instrumentation. A lidocaine and epinephrine pledget was then placed into the left ethmoid cavity. The right side was then addressed in a similar fashion with similar intraoperative findings except there was not a polyp within the nasal cavity. Also, there was purulence within the right frontal sinus which was completely suctioned. The nasal septum was then injected with 1% lidocaine with 1:100,000 epinephrine. After allowing adequate time for vasoconstriction, a #15 scalpel was used to make a left Ray incision through which the left-sided mucoperichondrial mucoperiosteal flap was elevated. A #15 scalpel was then used to incise the quadrangular cartilage with care to preserve a 1.5 cm dorsal and caudal strut and the right-sided mucoperichondrial mucoperiosteal flap was elevated through this cartilaginous incision. A Deidra swivel knife was then used to remove the deviated portion of the quadrangular cartilage. [place] forceps was then used to remove septal bone, more posteriorly that was not causing the left nasal septal deviation superiorly. The septal cavity was then suctioned. The septum was found to be midline. The left Ray incision was closed with several simple interrupted 4-0 chromic sutures. A 4-0 plain gut suture on a Des needle was then used to perform a quilting stitch of the mucoperichondrial mucosa flaps bilaterally to help prevent septal hematoma. A Rodriguez elevator was then used to infracture and subsequently outfracture inferior turbinates bilaterally. These were injected with 1% lidocaine with 1:100,000 epinephrine. A 2.0 mm turbinate blade using powered instrumentation was then used to perform bilateral inferior turbinoplasties in the submucosal fashion. The sinonasal cavities were then suctioned. A Stammberger nasal dressing mixed 1:1 with Kenalog 40 mg per 1 mL was then instilled into the ethmoid sinuses and frontoethmoidal recesses. The nasal cavity and nasopharynx were then suctioned. An orogastric tube was placed and the stomach was suctioned free of air and stomach contents. This marked the end of the case. The patient tolerated the procedure well. There were no apparent complications. The patient was extubated and transferred to recovery room in stable condition. I attest to the content of the Intraoperative Record and any orders documented therein. Any exception s are noted below.
--- NOTE | 2017-12-26 15:32 | Anesthesiology Progress Note ---
Anesthesia Post Op Note Date & Time Dec 26, 2017 at 15:31 Vital Signs Pain Intensity: 0 Vital Signs Past 12 Hours Date Time Temp Pulse Resp B/P (MAP) Pulse Ox O2 Delivery O2 Flow Rate FiO2 12/26/17 15:06 134/82 12/26/17 15:04 63 14 91 12/26/17 15:04 61 14 12/26/17 15:03 37.2 58 16 139/80 93 Room Air 12/26/17 15:01 139/80 12/26/17 14:59 59 16 12/26/17 14:59 59 16 92 12/26/17 14:56 151/82 12/26/17 14:54 48 10 95 12/26/17 14:54 51 10 12/26/17 14:51 147/90 12/26/17 14:49 55 4 12/26/17 14:49 56 4 95 12/26/17 14:46 148/92 12/26/17 14:44 60 12 95 12/26/17 14:44 57 12 12/26/17 14:43 58 7 12/26/17 14:43 56 7 94 12/26/17 14:41 151/84 12/26/17 14:38 62 17 12/26/17 14:38 60 17 97 12/26/17 14:36 162/84 12/26/17 14:33 72 17 12/26/17 14:33 72 17 97 12/26/17 14:31 151/86 12/26/17 14:28 85 163/85 94 12/26/17 14:28 36.7 86 16 163/85 97 Humidified Oxygen 10 Diffusion Mask 12/26/17 14:28 85 12/26/17 10:26 36.7 63 22 152/103 (119) 97 Room Air 157/94 (115) Notes Mental Status: alert / awake / arousable, participated in evaluation Pt Amnestic to Procedure: Yes Nausea / Vomiting: adequately controlled Pain: adequately controlled Airway Patency, RR, SpO2: stable & adequate BP & HR: stable & adequate Hydration State: stable & adequate Anesthetic Complications: no major complications apparent Anesthetic Complications: pt with long history of PACs. Pt EKG notable for PACs prior to anesthesia and continued throughout surgery and PACU. Pt remained hemodynamically stable despite PACs. Ok to discharge home.
[2017-12-26 15:40] VITALS: BP 133/71; PULSE 56; O2SAT 94
== END | disposition home or self-care (01) ==
LOC: X.SURG 09:48
DX: J32.9 Chronic sinusitis, unspecified (principal); J34.2 Deviated nasal septum; J34.3 Hypertrophy of nasal turbinates; J33.9 Nasal polyp, unspecified; J45.909 Unspecified asthma, uncomplicated; Z86.718 Personal history of other venous thrombosis and embolism; Z98.890 Other specified postprocedural states; Z88.1 Allergy status to other antibiotic agents; Z88.0 Allergy status to penicillin

== ENCOUNTER → 2018-01-06 | Day surgery (SDC) | payer BC ==
[2017-12-19 14:10] VITALS: Ht 182.9 cm; Wt 92.7 kg
[~2018-01-06] VITALS: Ht 182.9 cm; Wt 92.7 kg
[~2018-01-06] MED LIST changes: -ACETAMINOPHEN 1000 MG/100 ML IV IV ONE; -ATROPINE SULFATE 0.1 MG/ML 5ML SYR IV PRN; -CLINDAMYCIN 900MG IV SCH; -CLINDAMYCIN IV 900 MG in DEXTROSE 5% 50ML 44 ML IV SCH; -DEXAMETHASONE SOD INJ 4 MG/ML VIAL ONE; -EpHEDrine SULFATE INJ 50 MG/ML AMP IV PRN; -EpHEDrine SULFATE INJ 50 MG/ML AMP ONE; -EpINEphrine INJ 1MG/ML AMP 1 MG/ML AMP ONE; -FENTANYL CITRATE INJ 50 MCG/1 ML 2 ML VIAL IV PRN; -FENTANYL CITRATE INJ 50 MCG/1 ML 2 ML VIAL ONE; -FLUT0.15 NAE; -GLYCOPYRROLATE INJ 0.2 MG/ML VIAL ONE; -HYDROCODONE/ACETAMIN 5/325MG TAB PO PRN; -LIDOCAINE 4% MPF SOAK 5 ML = 1 DOSE TOP ONE; -LIDOCAINE/EPINEPHRINE 1% 20 ML VIAL ONE; -MIDAZOLAM HCL 1 MG/ML 2ML VIAL ONE; -NEOSTIGMINE METHYLSULFATE 5 MG/5 ML SYR ONE; -ONDANSETRON INJ 2 MG/ML 2 ML VIAL IV PRN; -ONDANSETRON INJ 2 MG/ML 2 ML VIAL ONE; -OXYMETAZOLINE HCL 0.05% NA SPR 15 ML BTL PRN; -OXYMETAZOLINE HCL 0.05% NA SPR 15 ML BTL SCH; +SODIUM CHLORIDE 0.9% 500ML 500 ML IV ONE; -SODIUM CHLORIDE 0.9% INJ 10 ML VIAL ONE; -TRIAMCINOLONE ACET 40 MG/ML VIAL ONE
--- NOTE | 2018-01-06 12:01 | Endo History and Physical ---
History & Physical Date of Service: Jan 06, 2018. Chief Complaint: History of colon polyps Referring Physician: Alicia Yates History of Present Illness 72 yo CM who presents for colonoscopy secondary to history of colon polyps. Past Surgical History Hx Cardiac Surgery: No Hx Internal Defibrillator: No Hx Pacemaker: No Hx Abdominal Surgery: Yes (UMBILICAL HERNIA REPAIR, EXPLORATORY LAPAROSCOPY FOR STITCH) Hx of Implantable Prosthesis: No Hx Post-Op Nausea and Vomiting: No Hx Cancer Surgery: No Hx Thoracic Surgery: No Hx Orthopedic: Yes (LT SHOULDER/CLAVICLE/ELBOW, LT KNEE SURGERY) Hx Urinary Tract Surgery: No Family History None Social History Smoking Status: Never Smoker Hx Substance Use: No Hx Alcohol Use: No Allergies Coded Allergies: Amoxicillin (Verified Allergy, Unknown, ANAPHYLAXIS, 01/06/18) Penicillins (Unverified Allergy, Unknown, ANAPHYLAXIS, 01/06/18) Current Medications Reported Home Medications Medications Dose Route/Sig Max Daily Dose Days Date Category Dose Instructions [place]-3 (Fish Oil) 1 Ea Cap 1 Cap PO 12/26/17 Reported Ventolin Hfa (Albuterol) 200 Puffs/88482 Mcg Aers 2-4 Puffs INH Q6H PRN 12/19/17 Reported Singulair (Montelukast Sodium) 10 Mg Tab 10 Mg PO HS 08/15/15 Reported Multivitamin (Multivitamins) Tab 1 Tab PO LUNCH 08/15/15 Reported Symbicort 160/4.5 Inhaler (Budesonide/Formoterol Fumarate) 120 Puffs/ Aero 2 Puffs INH BID 08/15/15 Reported RINSE MOUTH AFTER USE. Levothyroxine Sodium 150 Mcg Tab 150 Mcg PO QAM 08/15/15 Reported Vital Signs Weight (Kilograms): 92.73 Height (Feet): 6 Height (Inches): 0 Date Time Temp Pulse Resp B/P (MAP) Pulse Ox O2 Delivery O2 Flow Rate FiO2 01/06/18 11:12 36.8 68 24 146/100 (115) 95 Room Air Physical Exam General Appearance: WD/WN, no apparent distress Respiratory/Chest: Auscultation: breath sounds normal Cardiovascular: Heart Auscultation: RRR Abdomen: Bowel Sounds: normal Inspection & Palpation: soft, non-distended, no tenderness, guarding & rebound Assessment and Plan Assessment: 72 yo CM who presents for colonoscopy secondary to history of colon polyps. Plan: Proceed with colonoscopy.
--- NOTE | 2018-01-06 13:01 | GI REPORT ---
Procedure Date: 01/06/2018 12:16 PM Procedure: Colonoscopy Indications: High risk colon cancer surveillance: Personal history of colonic polyps Medicines: Monitored Anesthesia Care Complications: No immediate complications. Estimated Blood Loss: Estimated blood loss: none. Procedure: Pre-Anesthesia Assessment: - Prior to the procedure, a History and Physical was performed, and patient medications and allergies were reviewed. The patient's tolerance of previous anesthesia was also reviewed. The risks and benefits of the procedure and the sedation options and risks were discussed with the patient. All questions were answered, and informed consent was obtained. Prior Anticoagulants: The patient has taken no previous anticoagulant or antiplatelet agents. ASA Grade Assessment: II - A patient with mild systemic disease. After reviewing the risks and benefits, the patient was deemed in satisfactory condition to undergo the procedure. After I obtained informed consent, the scope was passed under direct vision. Throughout the procedure, the patient's blood pressure, pulse, and oxygen saturations were monitored continuously. The scope was introduced through the anus and advanced to the terminal ileum. The colonoscopy was performed without difficulty. The patient tolerated the procedure well. The quality of the bowel preparation was good. The terminal ileum, ileocecal valve, appendiceal orifice, and rectum were photographed. Findings: The perianal and digital rectal examinations were normal. A 8 mm polyp was found in the cecum. The polyp was sessile. The polyp was removed with a hot snare. Resection and retrieval were complete. To prevent bleeding after the polypectomy, one hemostatic clip was successfully placed. There was no bleeding at the end of the procedure. Two sessile polyps were found in the transverse colon and cecum. The polyps were 5 to 7 mm in size. These polyps were removed with a hot snare. Resection and retrieval were complete. Multiple small-mouthed diverticula were found in the sigmoid colon. Non-bleeding internal hemorrhoids were found during retroflexion. The hemorrhoids were small. Impression: - One 8 mm polyp in the cecum, removed with a hot snare. Resected and retrieved. Clip was placed. - Two 5 to 7 mm polyps in the transverse colon and in the cecum, removed with a hot snare. Resected and retrieved. - Diverticulosis in the sigmoid colon. - Non-bleeding internal hemorrhoids. Recommendation: - Resume previous diet. - Continue present medications. - Repeat colonoscopy for surveillance based on pathology results. - Return to primary care physician as previously scheduled. Barrie Zambrano, DO 01/06/2018 1:01:12 PM This report has been signed electronically. Note Initiated On: 01/06/2018 12:16 PM I attest to the content of the Intraoperative Record and orders documented therein, exceptions below
--- NOTE | 2018-01-06 13:04 | Discharge Instructions ---
Endoscopy Patient Instructions Date / Procedure(s) Performed Jan 06, 2018. Colonoscopy Allergy Information Coded Allergies: Amoxicillin (Verified Allergy, Unknown, ANAPHYLAXIS, 01/06/18) Penicillins (Unverified Allergy, Unknown, ANAPHYLAXIS, 01/06/18) Discharge Date / Findings Jan 06, 2018. Colon polyps Diverticulosis Internal hemorrhoids Medication Instructions Stopped Medication(s): Multi-Vitamin stopped 12/22/17 OK to resume all medications today as prescribed Reported Home Medications Medications Dose Route/Sig Max Daily Dose Days Date Category Dose Instructions [place]-3 (Fish Oil) 1 Ea Cap 1 Cap PO 12/26/17 Reported Ventolin Hfa (Albuterol) 200 Puffs/02769 Mcg Aers 2-4 Puffs INH Q6H PRN 12/19/17 Reported Singulair (Montelukast Sodium) 10 Mg Tab 10 Mg PO HS 08/15/15 Reported Multivitamin (Multivitamins) Tab 1 Tab PO LUNCH 08/15/15 Reported Symbicort 160/4.5 Inhaler (Budesonide/Formoterol Fumarate) 120 Puffs/ Aero 2 Puffs INH BID 08/15/15 Reported RINSE MOUTH AFTER USE. Levothyroxine Sodium 150 Mcg Tab 150 Mcg PO QAM 08/15/15 Reported Provider Instructions Activity Restrictions - No exercising or heavy lifting for 24 hours. - Do not drink alcohol the day of the procedure. - Do not drive a car or operate machinery until the day after the procedure. - Do not make any important decisions or sign important papers in 24 hours after the procedure. Following Day: - Return to full activity which may include returning to work/school. Diet Start your diet with liquids and light foods (jello, soup, juice, toast). Then eat your usual diet if not nauseated. Treatment For Common After Affects For mild abdominal pain, bloating, or excessive gas: - Rest - Eat lightly - Lie on right side Follow-Up Information Follow-up with Alicia Yates as scheduled Anesthesia Information What You Should Know You have had a procedure that required some medicine to reduce anxiety and discomfort. This treatment is called moderate sedation. After receiving the treatment, you may be sleepy, but you will be able to breathe on your own. The effects of the treatment may last for several hours. Follow these instructions along with Activity/Diet recommendations noted above: * Do NOT do anything where dizziness or clumsiness would be dangerous. * Rest quietly at home today, then you can be up and about tomorrow. * Have a responsible person stay with you the rest of today. * You may have had an I.V. today. If so, you may take the dressing off later today. Recommendations Call your doctor if: * Trouble breathing * Continuous vomiting for more than 24 hours * Temperature above 101 degrees * Severe abdominal pain or bloating * Pain not relieved by pain medicine ordered * There is increased drainage or redness from any incision * A large amount of rectal bleeding greater than 2-3 tablespoons. (If you had a polyp/s removed or have hemorrhoids, a small amount of blood - from the rectum is to be expected.) * You have any unanswered questions or concerns. IN THE EVENT OF A SERIOUS EMERGENCY, GO TO THE NEAREST EMERGENCY ROOM Your discharge instructions were prepared by provider Barrie Zambrano. Patient Instructions Signature Page Jonathan Rollins Patient (or Guardian) Signature/Date: I have read and understand the instructions given to me by my caregivers. Caregiver/RN/Doctor Signature/Date: The above-named patient and/or guardian has received patient instructions on this date. + Original Patient Signature Page (only) stays with chart. Please make copy for patient.
--- NOTE | 2018-01-06 13:26 | Anesthesiology Progress Note ---
Anesthesia Post Op Note Date & Time Jan 06, 2018 at 13:26 Vital Signs Pain Intensity: 0 Vital Signs Past 12 Hours Date Time Temp Pulse Resp B/P (MAP) Pulse Ox O2 Delivery O2 Flow Rate FiO2 01/06/18 13:15 68 20 143/83 (103) 94 Room Air 01/06/18 13:00 36 55 16 118/88 (98) 95 Room Air 01/06/18 11:12 36.8 68 24 146/100 (115) 95 Room Air Notes Mental Status: alert / awake / arousable, participated in evaluation Pt Amnestic to Procedure: Yes Nausea / Vomiting: adequately controlled Pain: adequately controlled Airway Patency, RR, SpO2: stable & adequate BP & HR: stable & adequate Hydration State: stable & adequate Anesthetic Complications: no major complications apparent
[2018-01-06 13:30] VITALS: BP 112/66; PULSE 68; O2SAT 94
== END | disposition home or self-care (01) ==
LOC: C.GI 10:50
PROVIDERS: ATTEND Internal Medicine
DX: Z12.11 Encounter for screening for malignant neoplasm of colon (principal); D12.0 Benign neoplasm of cecum; K63.5 Polyp of colon; K57.30 Diverticulosis of large intestine without perforation or abscess without bleeding; K64.8 Other hemorrhoids; Z86.010 Personal history of colon polyps; Z88.0 Allergy status to penicillin

== ENCOUNTER 2018-01-15 00:51 | Observation (INO) | payer BC ==
[~2018-01-15] VITALS: Ht 182.9 cm; Wt 94.1 kg
[~2018-01-15 00:51] MED LIST changes: -LIDOCAINE HCL 2% 2 ML VIAL (20MG/ML) ONE; -PROPOFOL IV EMULSION 10 MG/ML 20 ML VIAL IV ONE; -SODIUM CHLORIDE 0.9% 500ML 500 ML IV ONE
[2018-01-15] MEDS ORDERED: EpINEphrine INJ 1MG/ML AMP 1 MG/ML AMP ONE (00:58)
[2018-01-15] MEDS ORDERED: FAMOTIDINE 20MG/5ML IV PUSH IV STA (01:00)
[2018-01-15] MEDS ORDERED: DiphenhydrAMINE HCL 50 MG/ML VIAL IV STA ×2 (01:00→03:56)
[2018-01-15] MEDS ORDERED: DEXAMETHASONE **PF** INJ 10 MG/ML VIAL IV ONE (01:00)
[2018-01-15] MEDS ORDERED: SODIUM CHLORIDE 0.9% 1000ML 1,000 ML IV STA (01:00)
--- NOTE | 2018-01-15 01:01 | EMERGENCY ROOM VISIT NOTE ---
History Report prepared by Isi: Hill Bone Under the Supervision of: Dr. Joshua Mckeon M.D. First contact with patient: 00:56 Chief Complaint: ALLERGIC REACTION Stated Complaint: ALLERGIC REACTION History of Present Illness The patient is a 72 year old male who presents to the Emergency Room with complaints of shortness of breath that started prior to arrival. He states that he swallowed Levofloxacin because he felt like he was getting a cold s/p sinus surgery (2 weeks ago). The patient reports itching and difficulty swallowing. He states that he has asthma and that his current wheezing is not normal. The patient states he has taken Levofloxacin before. He reports that he normally takes Benadryl to improve his sleep and has had epinephrine before. He denies chest pain, headache, and tachycardia. He denies a history of cardiac issues and high blood pressure. 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 Patient denies tachycardia. Review of Systems See HPI for pertinent positives & negatives. A total of 10 systems reviewed and were otherwise negative. Past Medical & Surgical Medical Problems: (1) Allergic reaction (2) Asthma Social History Smoking Status: Never Smoker Drug Use: none Marital Status: Housing Status: lives with family Current/Historical Medications Scheduled Budesonide/Formoterol Fumarate (Symbicort 160/4.5 Inhaler), 2 PUFFS INH BID Fluticasone Propionate (Nasal) (Flonase Allergy Relief), 2 SPRAYS MANJINDER DAILY Levothyroxine Sodium (Levothyroxine Sodium), 150 MCG PO QAM Montelukast Sodium (Singulair), 10 MG PO HS Multivitamin (Multivitamin), 1 TAB PO LUNCH Shark Cartilage (Shark Fin Cartilage), 500 MG PO DAILY Scheduled PRN Albuterol Hfa (Ventolin Hfa), 2 PUFFS INH Q4 PRN for SOB/Wheezing Albuterol Sulf (Proventil 0.083% 2.5MG/3ML), 2.5 MG INH q4-6hrs PRN for SOB/ Wheezing Ipratropium [place] (Atrovent 0.02% Soln), 2.5 ML NEB Q4 PRN for SOB/Wheezing Allergies Coded Allergies: Levofloxacin (Verified Allergy, Severe, SOB, wheezing, hives, 01/15/18) Amoxicillin (Verified Allergy, Unknown, ANAPHYLAXIS, 01/15/18) Penicillins (Unverified Allergy, Unknown, ANAPHYLAXIS, 01/15/18) Physical Exam Vital Signs Date Time Temp Pulse Resp B/P (MAP) Pulse Ox O2 Delivery O2 Flow Rate FiO2 01/15/18 03:14 93 Room Air 01/15/18 03:13 71 18 141/88 93 Room Air 01/15/18 01:51 68 150/82 93 Room Air 01/15/18 01:21 57 17 100 Room Air 01/15/18 01:06 69 01/15/18 00:57 36.5 80 20 177/85 96 Room Air 01/15/18 00:57 177/85 Physical Exam GENERAL: Patient is ill appearing and in moderate distress. EYES: No scleral icterus, unremarkable pupils. ENT: Swelling of lips, tongue, and ears. Mucous membranes moist, no nasal congestion. NECK: No masses appreciated, no meningismus, trachea is midline. RESPIRATORY: Diffuse expiratory wheezing, clear inspiratory. Mild junky cough. No dyspnea. Clear to auscultation and equal bilaterally. No wheeze, no rhonchi. CARDIOVASCULAR: Regular rate and rhythm. No murmurs, rubs, gallops appreciated. GASTROINTESTINAL: Abdomen soft, nontender, no peritonitis. Bowel sounds positive. No masses appreciated. BACK: No midline tenderness, no CVA tenderness EXTREMITIES: Normal motion all extremities, no cyanosis, no edema. NEUROLOGIC: Alert and oriented, no acute motor or sensory deficits, no focal weakness, cranial nerves grossly intact. SKIN: Diffusely ecthymatous. No rash, no jaundice, no diaphoresis. Medical Decision & Procedures ER Provider Diagnostic Interpretation: X ray results are stated below per my interpretation: Chest: 1 view: No infiltrate, no effusion, normal cardiac border. Enlarged heart similar to previous chest X ray. Left clavicle hardware similar to previous chest X ray. Laboratory Results 01/15/18 01:00 Red Blood Count 4.91, Mean Corpuscular Volume 92.5, Mean Corpuscular Hemoglobin 31.6, Mean Corpuscular Hemoglobin Concent 34.1, Mean Platelet Volume 10.4, Neutrophils (%) (Auto) 68.0, Lymphocytes (%) (Auto) 22.6, Monocytes (%) (Auto) 8.1, Eosinophils (%) (Auto) 0.9, Basophils (%) (Auto) 0.1, Neutrophils # (Auto) 6.45, Lymphocytes # (Auto) 2.15, Monocytes # (Auto) 0.77, Eosinophils # (Auto) 0.09, Basophils # (Auto) 0.01 01/15/18 01:00 Test 01/15/18 01:00 White Blood Count 9.50 K/uL (4.8-10.8) Red Blood Count 4.91 M/uL (4.7-6.1) Hemoglobin 15.5 g/dL (14.0-18.0) Hematocrit 45.4 % (42-52) Mean Corpuscular Volume 92.5 fL (80-100) Mean Corpuscular Hemoglobin 31.6 pg (25-34) Mean Corpuscular Hemoglobin Concent 34.1 g/dl (32-36) Platelet Count 307 K/uL (130-400) Mean Platelet Volume 10.4 fL (7.4-10.4) Neutrophils (%) (Auto) 68.0 % Lymphocytes (%) (Auto) 22.6 % Monocytes (%) (Auto) 8.1 % Eosinophils (%) (Auto) 0.9 % Basophils (%) (Auto) 0.1 % Neutrophils # (Auto) 6.45 K/uL (1.4-6.5) Lymphocytes # (Auto) 2.15 K/uL (1.2-3.4) Monocytes # (Auto) 0.77 K/uL (0.11-0.59) Eosinophils # (Auto) 0.09 K/uL (0-0.5) Basophils # (Auto) 0.01 K/uL (0-0.2) RDW Standard Deviation 42.8 fL (36.4-46.3) RDW Coefficient of Variation 12.7 % (11.5-14.5) Immature Granulocyte % (Auto) 0.3 % Immature Granulocyte # (Auto) 0.03 K/uL (0.00-0.02) Anion Gap 8.0 mmol/L (3-11) Est Creatinine Clear Calc Drug Dose 63.4 ml/min Estimated GFR () 76.7 Estimated GFR (Non- 66.2 BUN/Creatinine Ratio 22.0 (10-20) Calcium Level 9.1 mg/dl (8.5-10.1) Troponin I < 0.015 ng/ml (0-0.045) Laboratory results as reviewed by me. Medications Administered Medications (Trade) Dose Ordered Sig/Genna Route Start Time Stop Time Status Last Admin Dose Admin Epinephrine HCl (EpINEphrine INJ 1MG/ML AMP/VIAL) 1 mg STK-MED ONCE .ROUTE 01/15/18 00:58 01/15/18 00:59 DC 01/15/18 01:13 1 MG Diphenhydramine HCl (Benadryl Inj) 50 mg NOW STAT IV 01/15/18 01:00 01/15/18 01:01 DC 01/15/18 01:13 50 MG Dexamethasone Sodium Phosphate (Dexamethasone Inj Pf) 10 mg NOW ONCE IV 01/15/18 01:00 01/15/18 01:01 DC 01/15/18 01:13 10 MG Sodium Chloride 1,000 ml @ 999 mls/hr Q1H1M STAT IV 01/15/18 01:00 01/15/18 02:00 DC 01/15/18 01:00 999 MLS/HR Famotidine (Pepcid 20mg Iv Push) 20 mg ONE STAT IV 01/15/18 01:00 01/15/18 01:02 DC 01/15/18 01:14 20 MG Albuterol/ Ipratropium (Duoneb) 3 ml NOW STAT INH 01/15/18 01:15 01/15/18 01:16 DC 01/15/18 01:15 3 ML Epinephrine HCl (EpINEphrine INJ 1MG/ML AMP/VIAL) 0.5 mg NOW STAT IM 01/15/18 01:30 01/15/18 01:32 DC 01/15/18 01:38 0.5 MG ECG Per My Interpretation Indication: other (allergic reaction) Rate (beats per minute): 70 Rhythm: normal sinus Findings: PAC, PVC, no acute ischemic change, other (QTc of 432) ED Course 0056: The patient was evaluated in room A11B. A complete history and physical exam was performed. 0114: I checked on the patient and he is doing well. His redness is mildly improved. He still has diffuse wheezing and still looks ill. 0130: I checked on the patient and his itching and erythema have returned. His wheezing is gone. I asked the nurse to give him another shot of epinephrine. 0151: I checked on the patient and he is very itchy. He notes that his rash is resolving. 030: I discussed the patient's case with the medicine resident. The patient will be evaluated for further treatment and disposition. 0315: Upon reevaluation, the patient is doing well. Discussed results and treatment plan with the patient. He verbalized understanding and agreement with the treatment plan. The patient will be evaluated for further management. Medical Decision Differential: Allergic Reaction, Urticaria, Anaphylaxis, Newsome-Tre Syndrome, Toxic Epidermal Necrolysis, Erythema Multiforme, Cellulitis, amongst other etiologies entertained. 72 yr old male arrives in acute anaphylactic state secondary to likely Levaquin consumed earlier for sinus infection. Given IM epi emergently followed by IV benadryl, decadron, pepcid, fluids. Initially mild improvement then worsening given another dose of IM epi which started turning things around much better. Expiratory wheezing I think is more asthma related thus duoneb given which resolved this. Still itching a fair amount with some mild diffuse erythema but much improved. Vitals stable. Labs OK with mild hyperglycemia. CXR clear. Will need to come in for further work-up and evaluation/treatment. Medication Reconcilliation Current Medication List: was personally reviewed by me Blood Pressure Screening Patient's blood pressure: Elevated blood pressure Blood pressure disposition: Elevated BP felt to be situational (He will be monitored by hospitalist.) Consults Time Called: 144 Consulting Physician: Medicine Resident Returned Call: [phone] Discussed the patient's case. The patient will be evaluated for further treatment and disposition. Impression Primary Impression: Anaphylaxis Additional Impression: Asthma exacerbation Critical Care I have personally spent greater than 45 minutes of critical care time in the direct management of this patient. This was a life/limb threatening event. This includes time spent evaluating patient, direct bedside care, chart review, placing orders, interpretation of diagnostic studies, discussion with consultants, patient, and family members, as well as other required patient management activities. This 45 minutes is in excess of all separately billable procedures. Scribe Attestation The scribe's documentation has been prepared under my direction and personally reviewed by me in its entirety. I confirm that the note above accurately reflects all work, treatment, procedures, and medical decision making performed by me. Departure Information Referrals Alicia Yates MD (PCP) Patient Instructions My [facility] Problem Qualifiers
[2018-01-15 01:12] LABS: BASO % 0.1 %; BASO ABS # 0.01 K/uL (0-0.2); EOS % 0.9 %; EOS ABS # 0.09 K/uL (0-0.5); HEMATOCRIT 45.4 % (42-52); HEMOGLOBIN 15.5 g/dL (14.0-18.0); IG# 0.03 K/uL (0.00-0.02); LYMPH % 22.6 %; LYMPH ABS # 2.15 K/uL (1.2-3.4); MEAN CELL VOLUME 92.5 fL (80-100); MEAN CORPUSCULAR HEMOGLOBIN 31.6 pg (25-34); MEAN CORPUSCULAR HGB CONC 34.1 g/dl (32-36); MEAN PLATELET VOLUME 10.4 fL (7.4-10.4); MONO % 8.1 %; MONO ABS # 0.77 K/uL (0.11-0.59); NEUT ABS # 6.45 K/uL (1.4-6.5); PLATELET COUNT 307 K/uL (130-400); RED CELL DISTRIBUTION WIDTH CV 12.7 % (11.5-14.5); RED CELL DISTRIBUTION WIDTH SD 42.8 fL (36.4-46.3)
[2018-01-15] MEDS ORDERED: ALBUT/IPRATROP 3MG/0.5MG NEB 3 ML VIAL INH STA (01:15)
[2018-01-15] MEDS ORDERED: ALBUT/IPRATROP 3MG/0.5MG NEB 3 ML VIAL ONE (01:16)
[2018-01-15 01:29] LABS: BLOOD UREA NITROGEN 25 mg/dl (7-18); CALCIUM 9.1 mg/dl (8.5-10.1); CARBON DIOXIDE 24 mmol/L (21-32); CREATININE 1.12 mg/dl (0.60-1.40); GLUCOSE 184 mg/dl (70-99); SODIUM 138 mmol/L (136-145)
[2018-01-15] MEDS ORDERED: EpINEphrine INJ 1MG/ML AMP 1 MG/ML AMP IM STA (01:30)
[2018-01-15] MEDS ORDERED: [UNRECOGNIZED DRUG - CODE] PO (01:45)
[2018-01-15] MEDS ORDERED: ALBINS/ INH (01:50)
[2018-01-15] MEDS ORDERED: FLUT0.15 NAE (01:50)
[2018-01-15] MEDS ORDERED: ATRINSX NEB (01:50)
[2018-01-15 03:30] VITALS: BP 141/86; PULSE 119; TEMP 36.7; O2SAT 93; Ht 182.9 cm; Wt 94.1 kg
[2018-01-15] MEDS ORDERED: ONDANSETRON INJ 2 MG/ML 2 ML VIAL IV PRN (03:30)
[2018-01-15] MEDS ORDERED: ALUMINUM/MAGNESIUM/SIMETH (MAALOX MAX) 30 ML UDC PO PRN (03:30)
[2018-01-15] MEDS ORDERED: ALBUTEROL HFA 8 GM INHALER INH PRN (03:30)
[2018-01-15] MEDS ORDERED: MAGNESIUM HYDROXIDE SUSP 30 ML UDC PO PRN (03:30)
[2018-01-15] MEDS ORDERED: FAMOTIDINE IV INJ 20 MG in DEXTROSE 5% 100ML 100 ML IV SCH (03:30)
[2018-01-15] MEDS ORDERED: ACETAMINOPHEN 325 MG TAB PO PRN (03:30)
[2018-01-15] MEDS ORDERED: POLYETHYLENE (MIRALAX) 17 GM PACK PO PRN (03:30)
--- NOTE | 2018-01-15 03:46 | History and Physical ---
History & Physical Date & Time of Service: Jan 15, 2018 at 03:35 Chief Complaint: Allergic Reaction Primary Care Physician: Alicia Yates MD History of Present Illness Source: patient, spouse, hospital records This is an 86 year old male with a history of asthma and hypothyroidism, who presents to the ED with sudden onset shortness of breath after taking a dose of Levaquin. The patient notes this evening he was in his usual state of health but he was starting to feel some increasing nasal congestion. He has a history of nasal poly removal 2 weeks ago and was concerned about post-operative infection. He had leftover Levaquin from a previous infection. He went to bed feeling slightly itchy and awoke shortly thereafter feeling short of breath and wheezy. He denies any numbness or swelling of the tongue. No sensation of the throat closing. No abdominal pain, nausea or vomiting. He does note feeling very itchy all over and noting hives. He reports a similar episode when he took Penicillin several years back and notes that it felt the same. In the ER whe was givne 2 dose of epinephrine, duoneb, Benadryl and Decadron after which he notes he was starting to feel better. The decision was made to admit the patient to monitor for recurrence of respiratory symptoms. Past Medical/Surgical History Hypothyroidism Asthma Family History Noncontributory Social History Smoking Status: Never Smoker Smokeless Tobacco Use: No Alcohol Use: none Drug Use: none Marital Status: Housing status: lives with significant other Occupational Status: retired Immunizations History of Influenza Vaccine: Yes Influenza Vaccine Date: Jul 20, 2013 History of Tetanus Vaccine?: Yes Tetanus Immunization Date: Aug 19, 2013 History of Pneumococcal: Yes Pneumococcal Date: Oct 27, 2005 History of Hepatitis B Vaccine: Yes Hepatitis Immunization Date: Sep 26, 1999 Multi-Drug Resistant Organisms History of MDRO: No Allergies Coded Allergies: Levofloxacin (Verified Allergy, Severe, SOB, wheezing, hives, 01/15/18) Amoxicillin (Verified Allergy, Unknown, ANAPHYLAXIS, 01/15/18) Penicillins (Unverified Allergy, Unknown, ANAPHYLAXIS, 01/15/18) Home Medications Scheduled Budesonide/Formoterol Fumarate (Symbicort 160/4.5 Inhaler), 2 PUFFS INH BID Epinephrine (Epipen), 0.3 MG IM UD Fluticasone Propionate (Nasal) (Flonase Allergy Relief), 2 SPRAYS MANJINDER DAILY Levothyroxine Sodium (Levothyroxine Sodium), 150 MCG PO QAM Montelukast Sodium (Singulair), 10 MG PO HS Multivitamin (Multivitamin), 1 TAB PO LUNCH Prednisone (Prednisone), 50 MG PO DAILY Shark Cartilage (Shark Fin Cartilage), 500 MG PO DAILY Scheduled PRN Albuterol Hfa (Ventolin Hfa), 2 PUFFS INH Q4 PRN for SOB/Wheezing Albuterol Sulf (Proventil 0.083% 2.5MG/3ML), 2.5 MG INH q4-6hrs PRN for SOB/ Wheezing Ipratropium [place] (Atrovent 0.02% Soln), 2.5 ML NEB Q4 PRN for SOB/Wheezing Review of Systems A 10 point review of systems was negative unless stated above. Physical Exam Vital Signs Date Time Temp Pulse Resp B/P (MAP) Pulse Ox O2 Delivery O2 Flow Rate FiO2 01/15/18 03:14 93 Room Air 01/15/18 03:13 71 18 141/88 93 Room Air 01/15/18 01:51 68 150/82 93 Room Air 01/15/18 01:21 57 17 100 Room Air 01/15/18 01:06 69 01/15/18 00:57 36.5 80 20 177/85 96 Room Air 01/15/18 00:57 177/85 General Appearance: WD/WN, no apparent distress Head: normocephalic, atraumatic Eyes: normal inspection, EOMI ENT: normal ENT inspection, hearing grossly normal, pharynx normal (Malampati 1 ) Neck: supple, no adenopathy, no JVD Respiratory/Chest: lungs clear, no respiratory distress Cardiovascular: regular rate, rhythm, no gallop, no murmur Abdomen/GI: normal bowel sounds, non tender, soft Back: normal inspection, no CVA tenderness Extremities/Musculoskelatal: no calf tenderness, no pedal edema Neurologic/Psych: alert, normal mood/affect, oriented x 3 Skin: normal color, warm/dry, no rash Lymphatic: no adenopathy Diagnostics Laboratory Results Results Past 24 Hours Test 01/15/18 01:00 Range/Units White Blood Count 9.50 4.8-10.8 K/uL Red Blood Count 4.91 4.7-6.1 M/uL Hemoglobin 15.5 14.0-18.0 g/dL Hematocrit 45.4 42-52 % Mean Corpuscular Volume 92.5 80-100 fL Mean Corpuscular Hemoglobin 31.6 25-34 pg Mean Corpuscular Hemoglobin Concent 34.1 32-36 g/dl Platelet Count 307 130-400 K/uL Mean Platelet Volume 10.4 7.4-10.4 fL Neutrophils (%) (Auto) 68.0 % Lymphocytes (%) (Auto) 22.6 % Monocytes (%) (Auto) 8.1 % Eosinophils (%) (Auto) 0.9 % Basophils (%) (Auto) 0.1 % Neutrophils # (Auto) 6.45 1.4-6.5 K/uL Lymphocytes # (Auto) 2.15 1.2-3.4 K/uL Monocytes # (Auto) 0.77 0.11-0.59 K/uL Eosinophils # (Auto) 0.09 0-0.5 K/uL Basophils # (Auto) 0.01 0-0.2 K/uL RDW Standard Deviation 42.8 36.4-46.3 fL RDW Coefficient of Variation 12.7 11.5-14.5 % Immature Granulocyte % (Auto) 0.3 % Immature Granulocyte # (Auto) 0.03 0.00-0.02 K/uL Sodium Level 138 136-145 mmol/L Potassium Level 4.0 3.5-5.1 mmol/L Chloride Level 106 98-107 mmol/L Carbon Dioxide Level 24 21-32 mmol/L Anion Gap 8.0 3-11 mmol/L Blood Urea Nitrogen 25 7-18 mg/dl Creatinine 1.12 0.60-1.40 mg/dl Est Creatinine Clear Calc Drug Dose 63.4 ml/min Estimated GFR () 76.7 Estimated GFR (Non- 66.2 BUN/Creatinine Ratio 22.0 10-20 Random Glucose 184 70-99 mg/dl Calcium Level 9.1 8.5-10.1 mg/dl Troponin I < 0.015 0-0.045 ng/ml Impression Assessment and Plan 72 year old male with anaphylactic reaction, secondary to levofloxacin. He reports tolerating Levaquin in the past. The plan is as follows: - Anaphylaxis: Currently stable on room air. Solu-medrol 40 mg IV TID. Famotidine IV. Benadryl PRN for itching. Duoneb PRN for shortness of breath or wheezing. Monitoring in telemetry. - Asthma: Home inhalers on hold (has IV corticosteroids and nebs). Continue Singulair. - Hypothyroidism: Continue Levothyroxine. - DVT Prophylaxis: SCD, ODESSA, Lovenox - Code Status: Level I Full Code - Disposition: Obs, telemetry, OT and PT consulted. Attending addendum: I have physically seen this patient, have supervised the medical residents activities, and agree with the H&P unless as otherwise noted. Assessment and Plan: Anaphylactic reaction-- Admit to telemetry unit for close oxygen monitoring, and monitor for arrhythmia. Question whether his reaction is to the antibiotic product levofloxacin itself or due to ingredients that make up the pill, as he has tolerated Levaquin in the past, but had an issue with generic levofloxacin today. Continue Decadron IV, famotidine IV, Benadryl IV and duonebs. Frequent vital signs for monitoring for return of symptoms. Patient reports that he has had issues with generalized itching occurring more frequently over the past 6 months. Suggested to the patient and his , that he get RAST testing performed as an outpatient. Other treatments as above. Level of Care Telemetry Advanced Directives Existing Advance Directive: No Existing Living Will: No Existing Power of Drywall Installer: No Resuscitation Status FULL RESUSCITATION VTE Prophylaxis VTE Risk Assessment Done? Y/N: Yes Risk Level: Moderate Given or contraindicated: Enoxaparin (Lovenox)SQ Social Service Consult None Apply
[2018-01-15] MEDS ORDERED: ALBUT/IPRATROP 3MG/0.5MG NEB 3 ML VIAL INH SCH (04:00)
[2018-01-15] MEDS ORDERED: DiphenhydrAMINE HCL 50 MG/ML VIAL ONE (04:00)
[2018-01-15] MEDS ORDERED: LEVOTHYROXINE 150 MCG TAB PO SCH (06:00)
[2018-01-15] MEDS: METHYLPREDNISOLONE IV 40 MG in SYRINGE 0 ML IV SCH ×2 (06:25→13:31)
[2018-01-15 06:35] LABS: PTT PATIENT 24.7 SECONDS (21.0-31.0)
[2018-01-15] MEDS ORDERED: IV FLUIDS COMPLETED PRN (06:45)
[2018-01-15 07:04] VITALS: PULSE 80; O2SAT 95
[2018-01-15 07:17] VITALS: BP 148/82; PULSE 68; TEMP 36.7; O2SAT 93
--- NOTE | 2018-01-15 07:27 | DIAGNOSTIC IMAGING REPORT ---
CHEST ONE VIEW PORTABLE CLINICAL HISTORY: anaphylaxis, wheezing COMPARISON STUDY: 11/26/2016 FINDINGS: The heart is mildly enlarged. There is no focal pulmonary consolidation. There is no failure. There are no pleural effusions. There are postsurgical changes involving the left clavicle.[ There are multiple old left-sided rib fractures. IMPRESSION: No active disease in the chest. Electronically signed by: Juan Diego Hernandez M.D. 01/15/2018 7:26 AM Dictated Date/Time: 01/15/2018 7:25 AM
[2018-01-15] MEDS ORDERED: ENOXAPARIN 40 MG/0.4 ML SYR SC SCH (08:00)
[2018-01-15] MEDS ORDERED: FLUTICASONE PROPIONATE NA SPR 16 GM BTL NAE SCH (09:00)
[2018-01-15] MEDS ORDERED: MULTIVITAMIN TAB PO SCH (09:00)
[2018-01-15] MEDS ORDERED: ALBUTEROL 0.083% NEBU SOLN 3 ML VIAL INH PRN (09:30)
[2018-01-15] MEDS ORDERED: IPRATROPIUM BROMIDE NEB SOLN 0.02% 2.5 ML VIAL INH PRN (09:30)
[2018-01-15 10:37] VITALS: BP 117/65; PULSE 75; TEMP 36.6; O2SAT 94
[2018-01-15] MEDS ORDERED: PRED50TA PO (11:37)
--- NOTE | 2018-01-15 11:42 | Discharge Instructions ---
Discharge Instructions Date of Service Jan 15, 2018. Admission Reason for Admission: Allergic Reaction Discharge Discharge Diagnosis / Problem: Allergic reaction Discharge Goals Goal(s): Therapeutic intervention Activity Recommendations Activity Limitations: resume your previous activity . Instructions / Follow-Up Instructions / Follow-Up You were admitted to the hospital for the evaluation of your respiratory distress after having taken a dose of the Levaquin. You were given two doses of Epinephrine as well as steroids and Benadryl. We would like you to continue the treatment for a total of five day of treatment ( 3 more days after today). The recommendations are as follows: 1. Continue Prednisone 50 mg daily for three days, a prescription has been sent to the pharmacy 2.Continue Zantac, over the counter, 1 pill twice a day for today and another three days 3. Continue Benadryl today and tomorrow 1 pill twice a day 4. 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 As discussed, we can prescribe you an epi pen for emergencies, your PCP is also able to do this. If you become interested in this please discuss with Dr Butt or PCP. We wish you well Rosita Hopper Current Hospital Diet Patient's current hospital diet: Regular Diet Discharge Diet Recommended Diet: Regular Diet Pending Studies Studies pending at discharge: no Medical Emergencies . Who to Call and When: Medical Emergencies: If at any time you feel your situation is an emergency, please call 911 immediately. . Non-Emergent Contact Non-Emergency issues call your: Primary Care Provider . . "Provider Documentation" section prepared by Veronica Hopper. .
--- NOTE | 2018-01-15 11:49 | Discharge Summary ---
Discharge Summary Date of Service Jan 15, 2018. Discharge Summary Admission Date: Jan 15, 2018 at 03:28 Discharge Date: Jan 15, 2018 Discharge Disposition: Home Principal Diagnosis: Allergic reaction Problems/Secondary Diagnoses: Asthma Immunizations: Have You Had Influenza Vaccine: Yes Influenza Vaccine Date: Jul 20, 2013 History of Tetanus Vaccine?: Yes Tetanus Immunization Date: Aug 19, 2013 History of Pneumococcal: Yes Pneumococcal Date: Oct 27, 2005 History of Hepatitis B Vaccine: Yes Hepatitis Immunization Date: Sep 26, 1999 Medication Reconciliation New Medications: Epinephrine (Epipen) 0.3 Mg/0.3 Ml Inj 0.3 MG IM UD for 30 Days, #1 BOX 3 Refills Prednisone (Prednisone) 50 Mg Tab 50 MG PO DAILY for 3 Days, #3 TAB Continued Medications: Albuterol Hfa (Ventolin Hfa) 200 Puffs/85820 Mcg Aers 2 PUFFS INH Q4 PRN for SOB/Wheezing Albuterol Sulf (Proventil 0.083% 2.5MG/3ML) 2.5 Mg/3 Ml Nebu 2.5 MG INH q4-6hrs PRN for SOB/Wheezing, EA Budesonide/Formoterol Fumarate (Symbicort 160/4.5 Inhaler) 120 Puffs/ Aero 2 PUFFS INH BID, INHALER RINSE MOUTH AFTER USE. Fluticasone Propionate (Nasal) (Flonase Allergy Relief) 50 Mcg/Act Spr 2 SPRAYS MANJINDER DAILY Ipratropium [place] (Atrovent 0.02% Soln) 2.5 Ml Nebu 2.5 ML NEB Q4 PRN for SOB/Wheezing use with albuterol Levothyroxine Sodium (Levothyroxine Sodium) 150 Mcg Tab 150 MCG PO QAM, TAB Montelukast Sodium (Singulair) 10 Mg Tab 10 MG PO HS, TAB Multivitamin (Multivitamin) Tab 1 TAB PO LUNCH Shark Cartilage (Shark Fin Cartilage) 500 Mg Cap 500 MG PO DAILY Discharge Exam Patient states he feels much better however a little groggy from the Benadryl . He denies any respiratory symptoms. He does note he has had skin testing in the past but never for antibiotics. Review of Systems: Constitutional: No fever Eyes: No worsening of vision ENT: No hearing loss Respiratory: No cough, No sputum, No wheezing, No shortness of breath, No dyspnea on exertion, No dyspnea at rest, No hemoptysis Cardiovascular: No chest pain, No palpitations Abdomen: No pain, No nausea, No vomiting, No diarrhea, No constipation Musculoskeletal: No joint pain, No muscle pain Genitourinary - Male: No hematuria Neurologic: No weakness, No numbness/tingling, No balance problems Psychiatric: No depression symptoms Endocrine: + fatigue Hematologic / Lymphatic: No abnormal bleeding/bruising Integumentary: No rash Physical Exam: General Appearance: no apparent distress Eyes: normal inspection ENT: normal ENT inspection Neck: supple Respiratory/Chest: normal breath sounds, no respiratory distress, no accessory muscle use Cardiovascular: regular rate, rhythm, no murmur, normal peripheral pulses Abdomen / GI: normal bowel sounds, non tender, soft Extremities: normal inspection, no calf tenderness, no pedal edema Neurologic/Psychiatric: alert, normal mood/affect, oriented x 3 Skin: normal color, warm/dry, no rash Lymphatic: no adenopathy Hospital Course This is a 72 yo m with a history of asthma that presented to the ED with difficulty breathing and hives after having taken a single dose of Levaquin. This was a left over pill from a previous regimen as he was starting to develop nasal congestion. He was concerned because he had a nasal polypectomy two weeks prior and he thought it was getting infected. He was given two doses of epinephrine, steroids , duonebs and famotidine. He was d/c with instructions on PO steroids, Zantac and prn Benadryl. Rx for epi pen was given to the patient. Also discussed about follow up with hydrometer finisher to assess for need to repeat allergy testing specific to antibiotics as he had a similar reaction to PCN and assess allergy to antibiotics vs possible elements in the pill such as dye. He was recommended to follow up with ENT next week and PCP. Resident Physician Supervision Note: I interviewed and examined the patient. Discussed with Dr. Hopper and agree with findings and plan as documented in the note. Any exceptions or clarifications are listed here: None Patient feels back to his normal state although slightly tired from his Benadryl medication he says he has taken levofloxacin before without reaction is not sure why this happened at this time Vital signs are stable he is no respiratory distress lungs are clear without wheezes he has no upper airway stridor or other respiratory distress of any kind he will be discharged to complete additional steroids to for a 5 day course no taper antihistamines and follow-up with his machine worker Dr. Butt he was offered and did accept an EpiPen Documented By: Jonathan Spencer Total Time Spent: Less than 30 minutes This includes examination of the patient, discharge planning, medication reconciliation, and communication with other providers. Discharge Instructions Please refer to the electronic Patient Visit Report (Discharge Instructions) for additional information. Additional Copies To Alicia Yates MD
[2018-01-15] MEDS ORDERED: EPP3/2 IM (13:00)
[2018-01-15] MEDS ORDERED: FAMOTIDINE IV INJ 20 MG in SYRINGE 3 ML IV SCH (14:00)
[2018-01-15 14:12] VITALS: BP 117/65; PULSE 75; TEMP 36.6; O2SAT 94
[2018-01-15] MEDS ORDERED: MONTELUKAST SOD 10 MG TAB PO SCH (21:00)
[2018-01-15] MEDS ORDERED: BUDESONIDE/FORMOTEROL FUMARATE 160/4.5 60 PUFFS/INHALER INH SCH (21:00)
== END 2018-01-15 14:15 | disposition home or self-care (01) ==
LOC: C.EDB 00:52 → C.2E 03:28 → ENRESERV 03:41
PROVIDERS: ADMIT Student in an Organized Health Care Education/Training Program; ATTEND Hospitalist
DX: T36.8X5A Adverse effect of other systemic antibiotics, initial encounter (principal); J45.909 Unspecified asthma, uncomplicated; E03.9 Hypothyroidism, unspecified; Z88.1 Allergy status to other antibiotic agents; Z88.0 Allergy status to penicillin; Z79.52 Long term (current) use of systemic steroids

== ENCOUNTER 2024-08-06 00:57 | Inpatient (IN) ==
[2024-08-06] MEDS: ONDANSETRON INJ 2 MG/ML 2 ML VIAL IV STA (01:33)
[2024-08-06] MEDS: LORazepam 1 MG/1 ML SYR ED Inj Use IV STA (01:33)
[2024-08-06] MEDS: GLUCAGON 1 ML IV ONE (01:33)
--- NOTE | 2024-08-06 01:51 | Emergency Department Note ---
History of Present Illness General Chief complaint: Throat Pain Stated complaint: UNABLE TO SWALLOW, PAIN IN ESPHAGEUS Time Seen by Provider: 08/06/24 01:14 History of Present Illness This 79-year-old male presents to the ER complaining of a food bolus. Patient states he had chicken at 6 PM and is not able to swallow anything since. He is spitting up his own saliva. No history of food impaction in the past. Patient denies chest pain, dyspnea, fevers, or any other medical complaints. Home Medications Medication Instructions Recorded Confirmed Type multivitamin 1 tab PO QPM 11/09/18 02/28/24 History epinephrine 0.3 mg/0.3 mL 0.3 mg IM ONCE PRN Anaphylaxis 08/13/19 02/28/24 History injection, auto-injector cholecalciferol (vitamin D3) 1 dose PO QDL 09/02/20 02/28/24 History zinc gluconate-vitamin C [zinc] 1 dose PO QPM 09/02/20 02/28/24 History montelukast 10 mg tablet 10 mg PO PM #30 tabs 05/13/21 02/28/24 Rx (Singulair) albuterol sulfate 2.5 mg/3 mL 2.5 mg (3 mL) inhalation Q4H PRN 11/22/23 02/28/24 Rx (0.083 %) solution for nebulization shortness of breath or wheezing #75 mL albuterol sulfate 90 mcg/actuation 2 puff inhalation Q4H PRN 11/22/23 02/28/24 Rx aerosol inhaler (Ventolin HFA) Shortness Of Breath #1 inhaler ipratropium bromide 0.02 % 0.5 mg (2.5 mL) inhalation Q4H PRN 11/22/23 02/28/24 Rx solution for inhalation shortness of breath or wheezing #75 mL budesonide-formoterol HFA 160 2 puff inhalation BID #10.2 grams 12/02/23 02/28/24 Rx mcg-4.5 mcg/actuation aerosol inhaler (Symbicort) fluticasone propionate 50 2 spray intranasal DAILY #16 grams 03/01/24 Rx mcg/actuation nasal spray,suspension pantoprazole 40 mg tablet,delayed See Rx Instructions .Route 05/17/24 Rx release .COMPLEX #30 tabs levothyroxine 150 mcg tablet See Rx Instructions .Route 05/22/24 Rx .COMPLEX #90 tabs metformin 1,000 mg tablet See Rx Instructions .Route 06/06/24 Rx .COMPLEX #180 tabs azithromycin 250 mg tablet See Rx Instructions PO .COMPLEX #6 07/23/24 Rx tabs prednisone 10 mg tablet 10 mg PO .COMPLEX #30 tabs 07/23/24 Rx Allergies Allergy/AdvReac Type Severity Reaction Status Date / Time levofloxacin Allergy Severe SOB, Verified 02/28/24 09:56 wheezing, hives Penicillins Allergy Severe ANAPHYLAXIS Verified 02/28/24 09:56 Past Med/Surg History Problem List Food impaction of esophagus (Acute) Moderate persistent asthma Right inguinal hernia Right groin pain Esophageal candidiasis Esophageal stenosis H. 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 Asthma (Chronic) Vitamin D deficiency (Chronic) Sinus bradycardia (Chronic) Premature ventricular contractions (Chronic) Pes planus (Chronic) Internal hemorrhoids (Chronic) Hypothyroidism (Chronic) Atrial premature complex (Chronic) Ataxia (Chronic) Allergic rhinitis (Chronic) Eosinophilia Diabetic peripheral neuropathy Subclavian vein stenosis (Chronic) Essential hypertriglyceridemia (Chronic) Diverticulosis (Chronic) Degenerative lumbar spinal stenosis (Chronic) Chronic sinusitis (Chronic) Medical History DM type 2 (diabetes mellitus, type 2) History of anesthesia reaction difficulty voiding post op Dysphagia Spontaneous pneumothorax hx Osteoarthritis Hypothyroidism Peripheral neuropathy RT/LEFT FOOT 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 [place] Asthma USED INHALER "A FEW WEEKS AGO" Surgical History History of hammertoe correction History of shoulder surgery History of knee surgery History of colonoscopy History of tooth extraction History of herniorrhaphy UMIBILICAL Nasal polyp REMOVED H/O eye surgery LENS IMPLANT Family History Brother Family history of diabetes mellitus FHx: brain cancer Sister Family history of diabetes mellitus Father Myocardial infarction Cardiac disorder Mother Lung cancer Denies family history of Ovarian cancer Prostate cancer Crohn's disease Breast cancer Colorectal cancer Ulcerative colitis Social History Smoking Status: Never smoker Second Hand Exposure: No; Do You Dip or Chew Tobacco: No; Hx Alcohol Use: No Hx Substance Use: No Preferred Language: Japanese Communication Ability: Effective Visual Impairment: No Limitations Hearing Ability: Use of Hearing Aid Bite Block Maker Required: No Beliefs That Will Affect Care: None marital status: Current Living Situation: Spouse current occupational status: retired How many Children do You have: 3 Feels Safe at Home: Yes Childhood Exposure to Second-Hand Smoke: Yes Diet: regular Diet Comment: regular caffeine: Yes during the past year weight has: remained stable Dental Care, Regularly: Yes Physical Activity Frequency: 3-4 Times per Week Seatbelt Use: always Sunscreen Use: Yes Assistive Devices: Denture - Upper, Glasses and Hearing Aid - Bilateral Review of Systems A total of 10 systems reviewed and were otherwise negative Physical Exam Vital Signs Vital Signs - 24 hr 08/06/24 01:00 08/06/24 01:39 08/06/24 02:19 Temperature 36.2 C L Temperature Source Temporal Artery Scan Pulse Rate 67 Pulse Rate [Radial] 65 70 Respiratory Rate 19 18 18 Respiratory Effort / Characteristics Non-Labored Spontaneous Respiratory Depth Normal Blood Pressure 161/93 H Blood Pressure [Left Arm] 176/110 H 145/95 H Blood Pressure Mean 115 Blood Pressure Mean [Left Arm] 132 111 Pulse Oximetry 97 97 96 Oxygen Delivery Method Room Air Sepsis Recent Fever Within 48 Hours No Sepsis New/Unexplained Change in Mental Status N/A Sepsis Action Taken by Nursing No Action Required 08/06/24 02:38 Temperature Temperature Source Pulse Rate Pulse Rate [Radial] 68 Respiratory Rate 18 Respiratory Effort / Characteristics Respiratory Depth Blood Pressure Blood Pressure [Left Arm] 152/95 H Blood Pressure Mean Blood Pressure Mean [Left Arm] 114 Pulse Oximetry 96 Oxygen Delivery Method Sepsis Recent Fever Within 48 Hours Sepsis New/Unexplained Change in Mental Status Sepsis Action Taken by Nursing VITALS: Vitals are noted on the nurse's note and reviewed by myself. Vital signs stable. GENERAL: Pleasant gentleman unable to swallow his saliva spitting up into a bag, in no acute distress, nondiaphoretic, well-developed well-nourished. SKIN: Capillary reflex less than 2 seconds. HEENT: Normocephalic. PERRLA. EOMI. Nares patent. Mucous membranes moist. Neck is supple without nuchal rigidity. HEART: Regular rate and rhythm LUNGS: Clear to auscultation bilaterally without wheezes, rales or rhonchi. No retractions or accessory muscle use. ABDOMEN: Positive bowel sounds x 4. Normal tympanic percussion. Soft, nontender, without masses or organomegaly. Brewer sign negative. No guarding or rebound tenderness. no CVA tenderness MUSCULOSKELETAL: No gross musculoskeletal defects. NEURO: Patient was alert and oriented to person place and time. No focal neurological deficits. Course Administered Medications Discontinued Medications Glucagon (Glucagen) 1 mls @ 1 mls/min IV ONE ONE Stop: 08/06/24 01:23 Last Admin: 08/06/24 01:33 Dose: 1 mls/min Documented By: RA Lorazepam (Lorazepam 1 Mg/1 Ml Syr Ed Inj Use) 0.5 mg IV ONE STA Stop: 08/06/24 01:24 Last Admin: 08/06/24 01:33 Dose: 0.5 mg Documented By: RA Ondansetron HCl (Ondansetron Inj 2 Mg/Ml 2 Ml Vial) 4 mg IV NOW STA Stop: 08/06/24 01:24 Last Admin: 08/06/24 01:33 Dose: 4 mg Documented By: RA Medical Decision Making Medical Records Attestation: I reviewed the patient's medical records. Home Medications Current Medication List: was personally reviewed by me Laboratory Data Attestation: I reviewed the patient's lab results. 08/06/24 01:20 08/06/24 01:20 Lab Results 08/06/24 Range/Units 01:20 WBC 14.12 H (4.8-10.8) K/ul RBC 4.97 (4.70-6.10) M/uL Hgb 14.5 (14.0-18.0) g/dl Hct 45.7 (42.0-52.0) % MCV 92.0 (80.0-100.0) fL MCH 29.2 (25.0-34.0) pg MCHC 31.7 L (32.0-36.0) g/dL RDW Std Deviation 44.4 (36.4-46.3) fL RDW Coeff of Adeola 13.2 (11.5-14.5) % Plt Count 307 (130-400) K/uL MPV 10.6 (9.4-12.4) fL Immature Gran % (Auto) 0.9 % Neut % (Auto) 72.1 % Lymph % (Auto) 17.8 % [place] % (Auto) 6.9 % Eos % (Auto) 2.0 % Baso % (Auto) 0.3 % Neut # (Auto) 10.18 H (1.40-6.50) K/uL Lymph # (Auto) 2.51 (1.20-3.40) K/uL [place] # (Auto) 0.98 H (0.11-0.59) K/uL Eos # (Auto) 0.28 (0.00-0.50) K/uL Baso # (Auto) 0.04 (0.00-0.20) K/uL Immature Gran # (Auto) 0.13 (0.01-0.20) K/uL Sodium 139 (136-145) mmol/L Potassium 4.3 (3.5-5.1) mmol/L Chloride 102 (98-107) mmol/L Carbon Dioxide 30 (21-32) mmol/L Anion Gap 7 (3-11) BUN 23 (6-23) mg/dl Creatinine 1.06 (0.6-1.4) mg/dl Est Cr Clr Drug Dosing 62.0 ml/min Est GFR ( Amer) 78.1 ml/min Est GFR (Non-Af Amer) 67.4 ml/min BUN/Creatinine Ratio 21.7 H (10-20) Glucose 157 H (70-99(Fasting)) mg/dl Calcium 9.5 (8.6-10.3) mg/dl Total Bilirubin 0.5 (0.2-1.0) mg/dl AST 15 (13-39) U/L ALT 21 (7-52) U/L Alkaline Phosphatase 60 (34-104) U/L Total Protein 6.8 (6.0-8.3) gm/dl Albumin 4.4 (3.4-5.0) gm/dl Globulin 2.4 L (2.5-4.0) gm/dl Albumin/Globulin Ratio 1.8 (0.9-2) MDM Narrative Prior records/ancillary studies reviewed. Triage Nursing notes reviewed. Additional history obtained from nursing. The patient's history was concerning for food bolus Differential diagnosis: Etiologies such as food impaction, esophageal irritation, perforation as well as others were entertained. ER treatment provided: Glucagon, Ativan, Zofran On reassessment the patient felt better. Diagnostics interpreted by me: The labs Independently Interpreted by myself revealed mild leukocytosis, mild hyperglycemia without DKA Consultation: A consultation was placed with GI, Dr. Schneider. He will come in and evaluate the patient. GI remove the food impaction and recommends medical admission as patient had esophageal irritation and bleeding. He recommends Protonix 40 mg twice daily and clear liquid diet. Medicine was consulted and the case discussed. Patient will be mated to the medical service. This appears to be consistent with food bolus. Patient was still symptomatic. GI was consulted and will come in and evaluate the patient. He took the patient to the endoscopy suite and remove the food impaction. Apparently there is bleeding and irritation and would like to have the patient admitted to medicine. He would like to have the patient on a PPI twice daily and clear liquid diet. Medicine was consulted and the case was discussed. Patient will be admitted to the medical service. By the evaluation outlined above emergent etiologies such as perforation as well as others were deemed relatively unlikely. The pt informed about the findings as listed above. All questions were answered and pleased with the treatment. The chart was completed utilizing Spry Speech voice recognition software. Grammatical errors, random word insertions, pronoun errors, and incomplete sentences are an occassional consequence of this system due to software limitations, ambient noise, and hardware issues. Any formal questions or concerns about the content, text, or information contained within the body of this dictation should be directly addressed to the physician anesthesiologists' assistant for clarification. Impression & Plan Food impaction of esophagus Discharge Plan Visit Data Chief Complaint: Throat Pain Stated Complaint: UNABLE TO SWALLOW, PAIN IN ESPHAGEUS ED Provider: Crystal Richards ED Midlevel Provider: Crys Toledo Discharge Problem: Food impaction of esophagus Patient Disposition: Being Evaluated by Surgeon Condition: Good Discharge Instructions Interventions: ED Discharge Assessment Last Done: 08/06/24 03:29 Forms Stand Alone Forms: [employer] Prescriptions Prescriptions: No Action epinephrine 0.3 mg/0.3 mL auto-injector 0.3 mg IM ONCE PRN (Reason: Anaphylaxis) montelukast [Singulair] 10 mg tablet 10 mg PO PM Qty: 30 11RF Rx Instructions: Patient only needs a 15 day supply; [facility] albuterol sulfate [Ventolin HFA] 90 mcg/actuation HFA aerosol inhaler 2 puff inhalation Q4H PRN (Reason: Shortness Of Breath) Qty: 1 11RF albuterol sulfate 2.5 mg /3 mL (0.083 %) solution for nebulization 2.5 mg inhalation Q4H PRN (Reason: shortness of breath or wheezing) Qty: 75 5RF ipratropium bromide 0.02 % solution 0.5 mg inhalation Q4H PRN (Reason: shortness of breath or wheezing) Qty: 75 5RF budesonide-formoterol [Symbicort] 160-4.5 mcg/actuation HFA aerosol inhaler 2 puff INHALATION BID Qty: 10.2 6RF Rx Instructions: WITH A RINSE OF MOUTH AFTERWARDS. fluticasone propionate 50 mcg/actuation spray,suspension 2 spray intranasal DAILY Qty: 16 3RF pantoprazole 40 mg tablet,delayed release (DR/EC) See Rx Instructions .ROUTE .COMPLEX Qty: 30 5RF Dose Instruction: Take 1 tablet by mouth once daily Rx Instructions: Take 1 tablet by mouth once daily levothyroxine 150 mcg tablet See Rx Instructions .ROUTE .COMPLEX Qty: 90 1RF Dose Instruction: Take 1 tablet by mouth once daily Rx Instructions: Take 1 tablet by mouth once daily metformin 1,000 mg tablet See Rx Instructions .ROUTE .COMPLEX Qty: 180 1RF Dose Instruction: Take 1 tablet by mouth twice daily Rx Instructions: Take 1 tablet by mouth twice daily prednisone 10 mg tablet 10 mg PO .COMPLEX Qty: 30 0RF Rx Instructions: 10 mg PO 4qdx3;3qdx3;2qdx3;1qdx3 azithromycin 250 mg tablet See Rx Instructions PO .COMPLEX Qty: 6 1RF Rx Instructions: take 500 mg today (day 1), then 250 mg for 4 days (days 2-5) PO zinc gluconate-vitamin C 1 dose PO QPM cholecalciferol (vitamin D3) 1 dose PO QDL multivitamin Tablet 1 tab PO QPM Referrals Referrals: Alicia Yates MD [Primary Care Provider] - Demond Schneider MD [Physician] - Discharge Problem: Food impaction of esophagus Qualifiers: Encounter type: initial encounter Qualified Code(s): T18.128A - Food in esophagus causing other injury, initial encounter
[2024-08-06 01:52] LABS: Basophils # (auto) 0.04 K/uL (0.00-0.20); Basophils % (auto) 0.3 %; Eosinophils # (auto) 0.28 K/uL (0.00-0.50); Hematocrit (blood only) 45.7 % (42.0-52.0); Hemoglobin 14.5 g/dl (14.0-18.0); Immature Granulocytes # (auto) 0.13 K/uL (0.01-0.20); Immature Granulocytes % (auto) 0.9 %; Lymphocytes # (auto) 2.51 K/uL (1.20-3.40); Lymphocytes % (auto) 17.8 %; Mean Corpuscular Hemoglobin 29.2 pg (25.0-34.0); Mean Corpuscular Hgb Conc 31.7 g/dL (32.0-36.0); Mean Platelet Volume 10.6 fL (9.4-12.4); Monocytes # (auto) 0.98 K/uL (0.11-0.59); Monocytes % (auto) 6.9 %; Neutrophils # (auto) 10.18 K/uL (1.40-6.50); Neutrophils % (auto) 72.1 %; Platelet Count 307 K/uL (130-400); RDW Coefficient of Variation 13.2 % (11.5-14.5); RDW Standard Deviation 44.4 fL (36.4-46.3); Red Blood Count 4.97 M/uL (4.70-6.10); White Blood Count 14.12 K/ul (4.8-10.8)
[2024-08-06 02:15] LABS: Albumin Level 4.4 gm/dl (3.4-5.0); Bilirubin,Total 0.5 mg/dl (0.2-1.0); Calcium 9.5 mg/dl (8.6-10.3); Potassium 4.3 mmol/L (3.5-5.1)
[2024-08-06 02:21] LABS: Albumin Globulin Ratio 1.8 (0.9-2); BUN Creatinine Ratio 21.7 (10-20); Est GFR (African American) 78.1 ml/min; Est GFR (Non-African American) 67.4 ml/min; Globulin 2.4 gm/dl (2.5-4.0); Total Protein 6.8 gm/dl (6.0-8.3)
[2024-08-06] MEDS ORDERED: SUCCINYLCHOLINE CHLORIDE 20 MG/ML 10 ML VIAL IV ONE (03:00)
[2024-08-06] MEDS ORDERED: ROCURONIUM BROMIDE 10 MG/ML 5 ML VIAL IV ONE (03:00)
[2024-08-06] MEDS ORDERED: ONDANSETRON INJ 2 MG/ML 2 ML VIAL ONE (03:00)
[2024-08-06] MEDS ORDERED: PROPOFOL IV EMULSION 10 MG/ML 20 ML VIAL IV ONE (03:00)
[2024-08-06] MEDS ORDERED: DEXAMETHASONE SOD INJ 4 MG/ML VIAL ONE (03:00)
[2024-08-06] MEDS ORDERED: LIDOCAINE 2% 2 ML VIAL/AMP(20MG/ML) INFIL ONE (03:00)
[2024-08-06] MEDS ORDERED: fentaNYL citrate PF 100 MCG/2 ML VIAL ONE (03:06)
--- NOTE | 2024-08-06 03:13 | Anesthesiology Consultation ---
Date of Service August 06, 2024 Assessment & Plan Chart Review Chart Review: Acceptable Risk for Surgery and Patient NOT seen in Pre Admission Testing Consults Requested none ASA [id number] Proposed Anesthesia Anesthesia Type: General Risk / Benefits Reviewed With: PT / POA / Parent / Guardian, Accepts Plan and Informed Consent Obtained History Surgery Operation Date: 08/06/24 03:30 Proposed Procedures p EGD Dilatation - Demond Schneider MD Height/Weight Height: 5 ft 7 in Weight: 88.6 kg Allergies Allergy/AdvReac Type Severity Reaction Status Date / Time levofloxacin Allergy Severe SOB, Verified 02/28/24 09:56 wheezing, hives Penicillins Allergy Severe ANAPHYLAXIS Verified 02/28/24 09:56 Medications Home Medications Medication Instructions Recorded Confirmed Last Taken multivitamin 1 tab PO QPM 11/09/18 02/28/24 11/21/22 21:00 epinephrine 0.3 mg/0.3 mL 0.3 mg IM ONCE PRN Anaphylaxis 08/13/19 02/28/24 Unknown injection, auto-injector cholecalciferol (vitamin D3) 1 dose PO QDL 09/02/20 02/28/24 11/21/22 22:00 zinc gluconate-vitamin C [zinc] 1 dose PO QPM 09/02/20 02/28/24 11/21/22 21:00 montelukast 10 mg tablet 10 mg PO PM #30 tabs 05/13/21 02/28/24 11/21/22 21:00 (Singulair) albuterol sulfate 2.5 mg/3 mL 2.5 mg (3 mL) inhalation Q4H PRN 11/22/23 02/28/24 Unknown (0.083 %) solution for nebulization shortness of breath or wheezing #75 mL albuterol sulfate 90 mcg/actuation 2 puff inhalation Q4H PRN 11/22/23 02/28/24 Unknown aerosol inhaler (Ventolin HFA) Shortness Of Breath #1 inhaler ipratropium bromide 0.02 % 0.5 mg (2.5 mL) inhalation Q4H PRN 11/22/23 02/28/24 Unknown solution for inhalation shortness of breath or wheezing #75 mL budesonide-formoterol HFA 160 2 puff inhalation BID #10.2 grams 12/02/23 02/28/24 Unknown mcg-4.5 mcg/actuation aerosol inhaler (Symbicort) fluticasone propionate 50 2 spray intranasal DAILY #16 grams 03/01/24 Unknown mcg/actuation nasal spray,suspension pantoprazole 40 mg tablet,delayed See Rx Instructions .Route 05/17/24 Unknown release .COMPLEX #30 tabs levothyroxine 150 mcg tablet See Rx Instructions .Route 05/22/24 Unknown .COMPLEX #90 tabs metformin 1,000 mg tablet See Rx Instructions .Route 06/06/24 Unknown .COMPLEX #180 tabs azithromycin 250 mg tablet See Rx Instructions PO .COMPLEX #6 07/23/24 Unknown tabs prednisone 10 mg tablet 10 mg PO .COMPLEX #30 tabs 07/23/24 Unknown Past Medical History Medical History DM type 2 (diabetes mellitus, type 2) History of anesthesia reaction difficulty voiding post op Dysphagia Spontaneous pneumothorax hx Osteoarthritis Hypothyroidism Peripheral neuropathy RT/LEFT FOOT 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 [place] Asthma USED INHALER "A FEW WEEKS AGO" Exercise / Class Metabolic Activity II 4-5 Yardwork/Stairs/Walk up hill Past Family History Family History Brother Family history of diabetes mellitus FHx: brain cancer Sister Family history of diabetes mellitus Father Myocardial infarction Cardiac disorder Mother Lung cancer Denies family history of Ovarian cancer Prostate cancer Crohn's disease Breast cancer Colorectal cancer Ulcerative colitis Past Surgical History Surgical History History of hammertoe correction History of shoulder surgery History of knee surgery History of colonoscopy History of tooth extraction History of herniorrhaphy UMIBILICAL Nasal polyp REMOVED H/O eye surgery LENS IMPLANT Past Anesthesia History No Hx of Anesthesia Complications and No Family Hx of Anesthesia Complications History of PONV No Hx of PONV and No Hx of Motion Sickness Social History Smoking Status: Never smoker Do You Dip or Chew Tobacco: No Hx Alcohol Use: No Hx Substance Use: No substance use type: does not use Review of Systems ROS Unobtainable: All systems reviewed & are unremarkable except as noted in HPI & below Physical Exam Vital Signs Last Vital Signs Temp 36.2 C L 08/06/24 01:00 Pulse 68 08/06/24 02:38 Resp 18 08/06/24 02:38 BP 152/95 H 08/06/24 02:38 Pulse Ox 96 08/06/24 02:38 O2 Del Method Room Air 08/06/24 01:00 ENMT Mouth: no TMJ abnormality Thyromental Distance: > or= 3.5 Finger Breadths Mallampati Class: II Neck normal visual inspection and trachea midline; neck extension not limited Respiratory normal respiratory effort Auscultation: lungs clear to auscultation bilaterally Cardiovascular Rate/Rhythm: regular rate and regular rhythm Heart Sounds: no murmur Musculoskeletal Spine: normal cervical ROM Extremities: full ROM of extremities Neurologic moves all extremities Psychiatric Orientation: alert and oriented x 3 Testing Laboratory Results 08/06/24 01:20 08/06/24 01:20 Electrocardiogram Date: 08/15/22 Findings: + NSR @ PACs in form of bigeminy Echocardiogram Date: 09/14/22 EF: 55-60 LV Function: normal
[2024-08-06] MEDS ORDERED: ONDANSETRON INJ 2 MG/ML 2 ML VIAL IV PRN ×2 (03:31→05:15)
[2024-08-06] MEDS ORDERED: ePHEDrine sulfate 50 MG/ML AMP IV PRN (03:31)
[2024-08-06] MEDS ORDERED: ATROPINE SULFATE 0.1 MG/ML 10ML SYR IV PRN (03:31)
[2024-08-06] MEDS ORDERED: fentaNYL citrate PF 100 MCG/2 ML VIAL IV PRN (03:31)
--- NOTE | 2024-08-06 04:11 | Gastrointestinal Consultation ---
Date of Consultation August 06, 2024 Assessment & Plan (1) Food impaction of esophagus: Patient with a possible food impaction where he ate chicken at 6 PM last night and says that he is not being able to swallow at the current time we will plan for an urgent upper endoscopy and try to retrieve the food impaction further recommendations after the upper endoscopy History of Present Illness Reason for Consultation: Food impaction Food impaction Requesting Physician: Demond Schneider History of Present Illness A 79-year-old male with a past medical history significant for esophageal dilation as per the patient which happened last year he states he ate a piece of chicken at 6 PM last nightAfter which he was unable to swallow he states he cannot tolerate his saliva currently he is also having to throw up his saliva and is unable to swallow he is in mild distress secondary to that Allergies Allergy/AdvReac Type Severity Reaction Status Date / Time levofloxacin Allergy Severe SOB, Verified 02/28/24 09:56 wheezing, hives Penicillins Allergy Severe ANAPHYLAXIS Verified 02/28/24 09:56 Home Medications Medication Instructions Recorded Confirmed Type multivitamin 1 tab PO QPM 11/09/18 02/28/24 History epinephrine 0.3 mg/0.3 mL 0.3 mg IM ONCE PRN Anaphylaxis 08/13/19 02/28/24 History injection, auto-injector cholecalciferol (vitamin D3) 1 dose PO QDL 09/02/20 02/28/24 History zinc gluconate-vitamin C [zinc] 1 dose PO QPM 09/02/20 02/28/24 History montelukast 10 mg tablet 10 mg PO PM #30 tabs 05/13/21 02/28/24 Rx (Singulair) albuterol sulfate 2.5 mg/3 mL 2.5 mg (3 mL) inhalation Q4H PRN 11/22/23 02/28/24 Rx (0.083 %) solution for nebulization shortness of breath or wheezing #75 mL albuterol sulfate 90 mcg/actuation 2 puff inhalation Q4H PRN 11/22/23 02/28/24 Rx aerosol inhaler (Ventolin HFA) Shortness Of Breath #1 inhaler ipratropium bromide 0.02 % 0.5 mg (2.5 mL) inhalation Q4H PRN 11/22/23 02/28/24 Rx solution for inhalation shortness of breath or wheezing #75 mL budesonide-formoterol HFA 160 2 puff inhalation BID #10.2 grams 12/02/23 02/28/24 Rx mcg-4.5 mcg/actuation aerosol inhaler (Symbicort) fluticasone propionate 50 2 spray intranasal DAILY #16 grams 03/01/24 Rx mcg/actuation nasal spray,suspension pantoprazole 40 mg tablet,delayed See Rx Instructions .Route 05/17/24 Rx release .COMPLEX #30 tabs levothyroxine 150 mcg tablet See Rx Instructions .Route 05/22/24 Rx .COMPLEX #90 tabs metformin 1,000 mg tablet See Rx Instructions .Route 06/06/24 Rx .COMPLEX #180 tabs azithromycin 250 mg tablet See Rx Instructions PO .COMPLEX #6 07/23/24 Rx tabs prednisone 10 mg tablet 10 mg PO .COMPLEX #30 tabs 07/23/24 Rx Patient History Medical History DM type 2 (diabetes mellitus, type 2) History of anesthesia reaction difficulty voiding post op Dysphagia Spontaneous pneumothorax hx Osteoarthritis Hypothyroidism Peripheral neuropathy RT/LEFT FOOT 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 [place] Asthma USED INHALER "A FEW WEEKS AGO" Surgical History History of hammertoe correction History of shoulder surgery History of knee surgery History of colonoscopy History of tooth extraction History of herniorrhaphy UMIBILICAL Nasal polyp REMOVED H/O eye surgery LENS IMPLANT Family History Brother Family history of diabetes mellitus FHx: brain cancer Sister Family history of diabetes mellitus Father Myocardial infarction Cardiac disorder Mother Lung cancer Denies family history of Ovarian cancer Prostate cancer Crohn's disease Breast cancer Colorectal cancer Ulcerative colitis Social History Smoking Status: Never smoker Second Hand Exposure: No; Do You Dip or Chew Tobacco: No; Hx Alcohol Use: No Hx Substance Use: No Preferred Language: Spanish Communication Ability: Effective Visual Impairment: No Limitations Hearing Ability: Use of Hearing Aid International 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: No Beliefs That Will Affect Care: None marital status: Current Living Situation: Spouse current occupational status: retired How many Children do You have: 3 Feels Safe at Home: Yes Childhood Exposure to Second-Hand Smoke: Yes Diet: regular Diet Comment: regular caffeine: Yes during the past year weight has: remained stable Dental Care, Regularly: Yes Physical Activity Frequency: 3-4 Times per Week Seatbelt Use: always Sunscreen Use: Yes Assistive Devices: Denture - Upper, Glasses and Hearing Aid - Bilateral Review of Systems Review of Systems: Limited secondary to the fact that the patient is in distress secondary to throwing up his saliva Physical Exam Constitutional: Elderly male appears a little discomfort secondary to food impaction Respiratory: Clear anteriorly Cardiovascular: S1 and S2 Gastrointestinal (Abdomen): Soft no tenderness or masses appreciated Results & Data Vital Signs (Past 12 Hours) Vital Signs Temp Pulse Pulse Resp BP BP Pulse Ox 08/06/24 02:38 68 18 152/95 H 96 08/06/24 02:19 70 18 145/95 H 96 08/06/24 01:39 65 18 176/110 H 97 08/06/24 01:00 36.2 C L 67 19 161/93 H 97 O2 Del Method 08/06/24 02:38 08/06/24 02:19 08/06/24 01:39 08/06/24 01:00 Room Air PG Care Time/CCT Total # of Minutes Spent Total Time Spent with Patient: Total time spent is greater than 50% in coordination of care (as documented) at patient's floor/unit and/or counseling patient: Coding Level of Care Code 80530 IN/OBS CONSULT LVL 2,35M Diagnoses Food impaction of esophagus T18.128A; W44.F3XA Encounter type: initial encounter (1) Food impaction of esophagus Encounter type: initial encounter Qualified Code(s): T18.128A - Food in esophagus causing other injury, initial encounter; W44.F3XA - Food entering into or through a natural orifice, initial encounter
[2024-08-06] MEDS ORDERED: ePHEDrine sulfate 50 MG/5 ML SYR ONE (04:30)
[2024-08-06] MEDS ORDERED: PANTOprazole 40 MG in SYRINGE 0 ML IV ONE (04:45)
--- NOTE | 2024-08-06 04:53 | GI REPORT ---
[facility] Patient: VALERIO HARVEY : 1945 Sex at : Male Age: 79 Years Procedure: Upper GI endoscopy Date: 08/06/2024 Attending Physician: Demond Schneider MD Referring MD: Crystal Richards Do Indications: - Food impaction Medications: - See the Anesthesia note for documentation of the administered medications Complications: - No immediate complications. Procedure: - The egd scope was introduced through the mouth and advanced to the body of the stomach. - The upper GI endoscopy was accomplished with ease. Findings: - In the lower part of the esophagus there was a large food bolus the food bolus was retrieved by means of a chris toothed forcep as well as a Dia net all the food particles were retrieved in backward manner once the food bolus was fully retrieved there was an underlying stricture with some erythema and and grade D esophagitis and the scope was entered with ease into the stomach the gastric body appeared normal Impression: - In the lower part of the esophagus there was a large food bolus the food bolus was retrieved by means of a chris toothed forcep as well as a Dia net all the food particles were retrieved in backward manner once the food bolus was fully retrieved there was an underlying stricture with some erythema and and grade D esophagitis and the scope was entered with ease into the stomach the gastric body appeared normal Recommendation: - Admit for observation will place on clear liquid diet would give IV PPI twice daily patient will need repeat EGD in the future for dilation of the stricture Procedure Code(s): - 53267-48, Esophagogastroduodenoscopy, flexible, transoral; diagnostic, including collection of specimen(s) by brushing or washing, when performed (separate procedure) CPT(R) - 2023 copyright [employer]. All Rights Reserved. The CPT codes, CCI edits and ICD codes generated are intended as suggestions and were generated based on input data. These codes are preliminary and upon experience specialist review may be revised to meet current compliance and payer requirements. The provider is responsible for the final determination of appropriate codes, and modifiers. Demond Schneider MD This document has been electronically signed. Note Initiated:08/06/2024 Note Completed:08/06/2024 4:52 AM \\[email or web address]\[email or web address]\[id number]
--- NOTE | 2024-08-06 05:05 | Anesthesiology Progress Note ---
Date of Service August 06, 2024 Anesthesia Post Procedure Vital Signs Vital Signs: Temp Pulse Pulse Resp BP BP Pulse Ox 08/06/24 05:03 08/06/24 04:52 36.7 C 82 18 148/87 H 95 08/06/24 02:38 68 18 152/95 H 96 08/06/24 02:19 70 18 145/95 H 96 08/06/24 01:39 65 18 176/110 H 97 08/06/24 01:00 36.2 C L 67 19 161/93 H 97 O2 Del Method 08/06/24 05:03 Room Air 08/06/24 04:52 Room Air 08/06/24 02:38 08/06/24 02:19 08/06/24 01:39 08/06/24 01:00 Room Air Pain Intensity Chest: Pain Intensity: 6 Transfer of Care Handoff Completed per policy Notes Mental Status: alert / awake / arousable Patient Amnestic to Procedure: Yes Nausea / Vomiting: adequately controlled Pain: adequately controlled Airway Patency, RR, SpO2: stable & adequate BP & HR: stable & adequate Hydration State: stable & adequate Anesthetic Complications: no major complications apparent and Pt Satisfied with anesthetic care
[2024-08-06] MEDS ORDERED: ACETAMINOPHEN 1000 MG/100 ML IV IV PRN (05:15)
[2024-08-06] MEDS ORDERED: ALBUT/IPRATROP 3MG/0.5MG NEB 3 ML VIAL NEB PRN (05:15)
[2024-08-06] MEDS ORDERED: NSS + 20MEQ KCL 20 MEQ/1,000 ML BAG IV SCH (05:15)
[2024-08-06] MEDS ORDERED: GLUCOSE 10 TAB/TUBE PO PRN (05:20)
[2024-08-06] MEDS ORDERED: CARBOHYDRATES FOR HYPOGLYCEMIA PO PRN (05:20)
[2024-08-06] MEDS ORDERED: DEXTROSE 50% 50 ML SYRINGE IV PRN (05:20)
[2024-08-06] MEDS ORDERED: GLUCOSE 40% GEL 15 GM TUBE PO PRN (05:20)
[2024-08-06] MEDS ORDERED: GLUCAGON FOR INJ 1 MG VIAL SQ PRN (05:20)
--- NOTE | 2024-08-06 05:37 | History & Physical Report ---
Date of Service August 06, 2024 Assessment & Plan (1) Food impaction of esophagus: (2) Esophageal stenosis: (3) Hypoxia: (4) Moderate persistent asthma: (5) Premature ventricular contractions: (6) Atrial premature complex: (7) Diabetic peripheral neuropathy: (8) Subclavian vein stenosis: (9) DM type 2 (diabetes mellitus, type 2): Plan Food impaction of esophagus/esophageal stricture/grade D esophagitis- Status post EGD with removal of chicken NPO Pantoprazole 40 mg IV twice daily with first dose now Zofran 4 mg IV every 6 hours as needed NSS + KCl 20 mill equivalents at 100 mL/h x 1 L Acetaminophen 1 g IV every 8 hours as needed for mild pain or fever Morphine sulfate 4 mg IV every 3 hours as needed for moderate to severe pain Patient will need outpatient EGD for dilatation Asthma/mild hypoxia postprocedure- DuoNebs every 2 hours as needed Neutrophilic leukocytosis, with concerns regarding possible aspiration pneumonitis Clindamycin 600 mg IV every 8 hours. Penicillins with anaphylaxis reaction Portable chest x-ray with no acute findings postprocedure MRSA swab Patient reports that he completed a course of prednisone and azithromycin 2 days ago for a respiratory infection, that he feels resolved Diabetes mellitus- Hold metformin Glucose 157 preprocedure labs, with postprocedure fingerstick [address] on Accu-Cheks with NovoLog SSI Check hemoglobin A1c Hypothyroidism- Should be able to resume levothyroxine tomorrow History of Present Illness Chief Complaint: Patient presents to the ER earlier this evening for a food bolus, reporting that piece chicken that he ate around 6 PM, as to be unable to swallow anything after that. He was taken to the endoscopy suite by gastroenterology Dr. Schneider, and then plans are to admit patient from the PACU to telemetry for IV Protonix, and gradual resumption of food intake. Primary Care Provider: Alicia Yates MD The patient is a 79-year-old male with a past medical history including diabetes mellitus, diabetic retinopathy of right eye, hypothyroidism, diabetic peripheral neuropathy, moderate persistent asthma, allergic rhinitis, H. pylori infection, esophageal stenosis, vitamin D deficiency, PVCs, PACs, eosinophilia, subclavian vein stenosis status post trauma, lumbar degenerative disc disease and chronic sinusitis. The patient presents to the emergency department with complaint of inability to swallow foods or liquids, including saliva, after having a piece of chicken get stuck in his esophagus at about 6 PM this evening. He was taken to the endoscopy suite by gastroenterology Dr. Schneider, where the food bolus was removed, and plan to admit patient to telemetry for monitoring. Postprocedure, the patient primarily is feeling mildly sedated, he has no complaints. Allergies Allergy/AdvReac Type Severity Reaction Status Date / Time levofloxacin Allergy Severe SOB, Verified 02/28/24 09:56 wheezing, hives Penicillins Allergy Severe ANAPHYLAXIS Verified 02/28/24 09:56 Home Medications Medication Instructions Recorded Confirmed Type multivitamin 1 tab PO QPM 11/09/18 02/28/24 History epinephrine 0.3 mg/0.3 mL 0.3 mg IM ONCE PRN Anaphylaxis 08/13/19 02/28/24 History injection, auto-injector cholecalciferol (vitamin D3) 1 dose PO QDL 09/02/20 02/28/24 History zinc gluconate-vitamin C [zinc] 1 dose PO QPM 09/02/20 02/28/24 History montelukast 10 mg tablet 10 mg PO PM #30 tabs 05/13/21 02/28/24 Rx (Singulair) albuterol sulfate 2.5 mg/3 mL 2.5 mg (3 mL) inhalation Q4H PRN 11/22/23 02/28/24 Rx (0.083 %) solution for nebulization shortness of breath or wheezing #75 mL albuterol sulfate 90 mcg/actuation 2 puff inhalation Q4H PRN 11/22/23 02/28/24 Rx aerosol inhaler (Ventolin HFA) Shortness Of Breath #1 inhaler ipratropium bromide 0.02 % 0.5 mg (2.5 mL) inhalation Q4H PRN 11/22/23 02/28/24 Rx solution for inhalation shortness of breath or wheezing #75 mL budesonide-formoterol HFA 160 2 puff inhalation BID #10.2 grams 12/02/23 4 Rx mcg-4.5 mcg/actuation aerosol inhaler (Symbicort) fluticasone propionate 50 2 spray intranasal DAILY #16 grams 03/01/24 Rx mcg/actuation nasal spray,suspension pantoprazole 40 mg tablet,delayed See Rx Instructions .Route 05/17/24 Rx release .COMPLEX #30 tabs levothyroxine 150 mcg tablet See Rx Instructions .Route 05/22/24 Rx .COMPLEX #90 tabs metformin 1,000 mg tablet See Rx Instructions .Route 06/06/24 Rx .COMPLEX #180 tabs azithromycin 250 mg tablet See Rx Instructions PO .COMPLEX #6 07/23/24 Rx tabs prednisone 10 mg tablet 10 mg PO .COMPLEX #30 tabs 07/23/24 Rx Past Med/Surg History Problem List (Updated 08/06/24 @ 05:53 by William James MD) Hypoxia DM type 2 (diabetes mellitus, type 2) Food impaction of esophagus (Acute) Moderate persistent asthma Right inguinal hernia Right groin pain Esophageal candidiasis Esophageal stenosis H. 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 Asthma (Chronic) Vitamin D deficiency (Chronic) Sinus bradycardia (Chronic) Premature ventricular contractions (Chronic) Pes planus (Chronic) Internal hemorrhoids (Chronic) Hypothyroidism (Chronic) Atrial premature complex (Chronic) Ataxia (Chronic) Allergic rhinitis (Chronic) Eosinophilia Diabetic peripheral neuropathy Subclavian vein stenosis (Chronic) Essential hypertriglyceridemia (Chronic) Diverticulosis (Chronic) Degenerative lumbar spinal stenosis (Chronic) Chronic sinusitis (Chronic) Medical History DM type 2 (diabetes mellitus, type 2) History of anesthesia reaction difficulty voiding post op Dysphagia Spontaneous pneumothorax hx Osteoarthritis Hypothyroidism Peripheral neuropathy RT/LEFT FOOT 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 [place] Asthma USED INHALER "A FEW WEEKS AGO" Surgical History History of hammertoe correction History of shoulder surgery History of knee surgery History of colonoscopy History of tooth extraction History of herniorrhaphy UMIBILICAL Nasal polyp REMOVED H/O eye surgery LENS IMPLANT Family History Brother Family history of diabetes mellitus FHx: brain cancer Sister Family history of diabetes mellitus Father Myocardial infarction Cardiac disorder Mother Lung cancer Denies family history of Ovarian cancer Prostate cancer Crohn's disease Breast cancer Colorectal cancer Ulcerative colitis Social History Smoking Status: Never smoker Second Hand Exposure: No; Do You Dip or Chew Tobacco: No; Hx Alcohol Use: No Hx Substance Use: No Preferred Language: Japanese Communication Ability: Effective Visual Impairment: No Limitations Hearing Ability: Use of Hearing Aid It Trainer Required: No Beliefs That Will Affect Care: None marital status: Current Living Situation: Spouse current occupational status: retired How many Children do You have: 3 Feels Safe at Home: Yes Childhood Exposure to Second-Hand Smoke: Yes Diet: regular Diet Comment: regular caffeine: Yes during the past year weight has: remained stable Dental Care, Regularly: Yes Physical Activity Frequency: 3-4 Times per Week Seatbelt Use: always Sunscreen Use: Yes Assistive Devices: Denture - Upper, Glasses and Hearing Aid - Bilateral Review of Systems Review of Systems: The patient denies chest pain, palpitations, shortness of breath, dyspnea on exertion, cough, lower extremity swelling, fevers, chills, sweats, weight change, fatigue, nausea, vomiting, diarrhea , constipation, abdominal pain, pelvic pain, blood in urine or stool, dysuria, urinary frequency or urgency, lightheadedness, dizziness, headache, memory loss, loss of consciousness, rash, abnormal bruising or bleeding, imbalance, focal or generalized weakness, numbness or tingling in arms or legs, generalized arthralgias or myalgias, back or neck pain, or night sweats. The review of systems is otherwise negative other than for that already noted above, and at least 10 systems have been reviewed. Physical Exam Physical Exam: The patient is awake, alert and oriented 3, well developed and well nourished, normocephalic and atraumatic, lying in bed and in no acute distress. HEENT--PERRL, EOMI, mucous membranes and oropharynx mildly dry. Neck--supple. No JVD. No bruits. Thyroid normal, trachea midline, no adenopathy. Heart--normal S1 and S2. No murmurs, rubs or gallops. Lungs--clear bilaterally, no respiratory distress, no accessory muscle use. Abdomen--normal bowel sounds and soft. Nontender. Nondistended, no hernias or masses, no organomegaly. Extremities--no cyanosis or clubbing. No edema. There are good distal pulses b/l. Dermatologic--normal skin turgor, normal color, no abnormal lymph nodes, no rash. Neurologic--cranial nerves II through XII grossly intact. Rheumatologic--normal range of motion. Psychiatric--normal affect. Results & Data Results & Data Vital Signs (Past 12 Hours) Vital Signs Temp Pulse Pulse Resp BP BP Pulse Ox 08/06/24 05:12 36.6 C 77 18 138/82 93 08/06/24 05:03 08/06/24 05:02 36.6 C 77 18 145/84 H 95 08/06/24 04:52 36.7 C 82 18 148/87 H 95 08/06/24 02:38 68 18 152/95 H 96 08/06/24 02:19 70 18 145/95 H 96 08/06/24 01:39 65 18 176/110 H 97 08/06/24 01:00 36.2 C L 67 19 161/93 H 97 O2 Del Method 08/06/24 05:12 Room Air 08/06/24 05:03 Room Air 08/06/24 05:02 Room Air 08/06/24 04:52 Room Air 08/06/24 02:38 08/06/24 02:19 08/06/24 01:39 08/06/24 01:00 Room Air Laboratory Results Laboratory Results WBC 14.12 K/ul (4.8-10.8) H 08/06/24 01:20 RBC 4.97 M/uL (4.70-6.10) 08/06/24 01:20 Hgb 14.5 g/dl (14.0-18.0) 08/06/24 01:20 Hct 45.7 % (42.0-52.0) 08/06/24 01:20 MCV 92.0 fL (80.0-100.0) 08/06/24 01:20 MCH 29.2 pg (25.0-34.0) 08/06/24 01:20 MCHC 31.7 g/dL (32.0-36.0) L 08/06/24 01:20 RDW Std Deviation 44.4 fL (36.4-46.3) 08/06/24 01:20 RDW Coeff of Adeola 13.2 % (11.5-14.5) 08/06/24 01:20 Plt Count 307 K/uL (130-400) 08/06/24 01:20 MPV 10.6 fL (9.4-12.4) 08/06/24 01:20 Immature Gran % (Auto) 0.9 % 08/06/24 01:20 Neut % (Auto) 72.1 % 08/06/24 01:20 Lymph % (Auto) 17.8 % 08/06/24 01:20 [place] % (Auto) 6.9 % 08/06/24 01:20 Eos % (Auto) 2.0 % 08/06/24 01:20 Baso % (Auto) 0.3 % 08/06/24 01:20 Neut # (Auto) 10.18 K/uL (1.40-6.50) H 08/06/24 01:20 Lymph # (Auto) 2.51 K/uL (1.20-3.40) 08/06/24 01:20 [place] # (Auto) 0.98 K/uL (0.11-0.59) H 08/06/24 01:20 Eos # (Auto) 0.28 K/uL (0.00-0.50) 08/06/24 01:20 Baso # (Auto) 0.04 K/uL (0.00-0.20) 08/06/24 01:20 Immature Gran # (Auto) 0.13 K/uL (0.01-0.20) 08/06/24 01:20 Sodium 139 mmol/L (136-145) 08/06/24 01:20 Potassium 4.3 mmol/L (3.5-5.1) 08/06/24 01:20 Chloride 102 mmol/L (98-107) 08/06/24 01:20 Carbon Dioxide 30 mmol/L (21-32) 08/06/24 01:20 Anion Gap 7 (3-11) 08/06/24 01:20 BUN 23 mg/dl (6-23) 08/06/24 01:20 Creatinine 1.06 mg/dl (0.6-1.4) 08/06/24 01:20 Est Cr Clr Drug Dosing 62.0 ml/min 08/06/24 01:20 Est GFR ( Amer) 78.1 ml/min 08/06/24 01:20 Est GFR (Non-Af Amer) 67.4 ml/min 08/06/24 01:20 BUN/Creatinine Ratio 21.7 (10-20) H 08/06/24 01:20 Glucose 157 mg/dl (70-99(Fasting)) H 08/06/24 01:20 POC Glucose 139 mg/dl (70-99) H 08/06/24 05:09 Calcium 9.5 mg/dl (8.6-10.3) 08/06/24 01:20 Total Bilirubin 0.5 mg/dl (0.2-1.0) 08/06/24 01:20 AST 15 U/L (13-39) 08/06/24 01:20 ALT 21 U/L (7-52) 08/06/24 01:20 Alkaline Phosphatase 60 U/L (34-104) 08/06/24 01:20 Total Protein 6.8 gm/dl (6.0-8.3) 08/06/24 01:20 Albumin 4.4 gm/dl (3.4-5.0) 08/06/24 01:20 Globulin 2.4 gm/dl (2.5-4.0) L 08/06/24 01:20 Albumin/Globulin Ratio 1.8 (0.9-2) 08/06/24 01:20 Code Status & VTE Plan Code Status Full code VTE Prophylaxis Plan VTE Prophylaxis will be ordered: Yes PG Care Time/CCT Total # of Minutes Spent Total Time Spent with Patient: Total time spent is greater than 50% in coordination of care (as documented) at patient's floor/unit and/or counseling patient: Coding Level of Care Code 19447 INT INP/OBS CARE 3/75MIN Diagnoses Food impaction of esophagus T18.128A; W44.F3XA Encounter type: initial encounter Esophageal stenosis K22.2 Hypoxia R09.02 Moderate persistent asthma J45.40 Premature ventricular contractions I49.3 Atrial premature complex I49.1 Diabetic peripheral neuropathy E11.42 Subclavian vein stenosis I87.1 DM type 2 (diabetes mellitus, type 2) E11.9 (1) Food impaction of esophagus Encounter type: initial encounter Qualified Code(s): T18.128A - Food in esophagus causing other injury, initial encounter; W44.F3XA - Food entering into or through a natural orifice, initial encounter
--- NOTE | 2024-08-06 06:56 | XRay Report ---
XR chest 1V portable CLINICAL HISTORY: hypoxia TECHNIQUE: Single frontal radiograph of the chest was obtained. Comparison: Comparison is made to chest radiograph 08/15/2022 FINDINGS: No lines and tubes are seen. Left clavicular hardware is noted. Cardiomegaly is noted. Linear densiti es in the right lung base are compatible with atelectasis. There is prominence of pulmonary vasculatu re. No evidence of pleural effusion or pneumothorax. IMPRESSION: Cardiomegaly and mild pulmonary edema. ACT 112: Negative or not required by law. Electronically signed by: Ghanshyam Fonseca M.D. 08/06/2024 6:55 AM
[2024-08-06] MEDS ORDERED: ACETAMINOPHEN 500 MG TAB PO PRN (07:45)
[2024-08-06] MEDS: LEVOTHYROXINE SODIUM 150 MCG TABLET PO SCH (08:47)
[2024-08-06] MEDS: NSS + 20MEQ KCL 20 MEQ/1,000 ML BAG IV SCH (08:49)
[2024-08-06] MEDS: CLINDAMYCIN/D5W 600 MG/50 ML BAG IV SCH (08:54)
[2024-08-06] MEDS ORDERED: PANTOprazole 40 MG in SYRINGE 0 ML IV SCH (09:00)
[2024-08-06] MEDS: INSULIN ASPART PER UNIT CHARGE SC SCH (09:06)
[2024-08-06] MEDS: FLUTICASONE/VILANTEROL 200/25MCG 14 PUFFS/INHALER INH SCH (09:06)
[2024-08-06] MEDS: PANTOprazole 40 MG in SYRINGE 0 ML IV ONE (09:08)
--- NOTE | 2024-08-06 10:32 | Gastroenterology Progress Note ---
Date of Service August 06, 2024 Assessment & Plan (1) Food impaction of esophagus: Plan: 79 year old male with history of T2DM, asthma, hypothyroidism and others admitted for observation following EGD for food impaction. May have clears today for lunch IV PPI BID while admitted then convert to PO PPI BID Admit for observation will place on clear liquid diet would give IV PPI Repeat EGD in the future for dilation of the stricture as an outpatient Thank you for allowing us to participate in the care of this patient. Please call with any acute changes, questions or concerns. Please see addendum below with additional recommendation from my supervising physician. Admission and Anticipated Discharge Date Admission Date: August 06, 2024 Supervising Physician Co-Signing Physician Notes I examined the patient and reviewed patient's chart , laboratory data and imaging studies. I agree with with assessment and plan of care as suggested by advanced practice provider Subjective Pt was seen and evaluated, chart reviewed Feeling well. S/P EGD for impaction. EGD 2023: The lower part of the esophagus there was a large food bolus the food bolus was retrieved by means of a chris toothed forcep as well as a Dia net all the food particles were retrieved in backward manner once the food bolus was fully retrieved there was an underlying stricture with some erythema and and grade D esophagitis and the scope was entered with ease into the stomach the gastric body appeared normal Admit for observation will place on clear liquid diet would give IV PPI twice daily patient will need repeat EGD in the future for dilation of the stricture EGD 2023: - Esophageal plaques were found, consistent with candidiasis. Cells for cytology obtained. - Benign-appearing esophageal stenosis. Dilated. - Small hiatal hernia. - Gastritis. Biopsied. - Normal examined duodenum. Review of Systems Review of Systems: All other findings negative except as noted in HPI. Physical Exam Constitutional: WD/WN, vitals as above Respiratory: normal respiratory effort, lungs clear to auscultation Cardiovascular: Rate/Rhythm: regular rate and regular rhythm Gastrointestinal (Abdomen): normal bowel sounds, soft, nontender, no hepatosplenomegaly Skin: no rashes, warm and dry Results & Data Results & Data Vital Signs (Past 12 Hours) Vital Signs Temp Pulse Pulse Resp BP BP BP 08/06/24 08:00 36.7 C 60 18 139/78 08/06/24 07:44 08/06/24 07:13 72 08/06/24 05:50 36.8 C 61 20 145/70 H 08/06/24 05:50 08/06/24 05:12 36.6 C 77 18 138/82 08/06/24 05:03 08/06/24 05:02 36.6 C 77 18 145/84 H 08/06/24 04:52 36.7 C 82 18 148/87 H 08/06/24 02:38 68 18 152/95 H 08/06/24 02:19 70 18 145/95 H 08/06/24 01:39 65 18 176/110 H 08/06/24 01:00 36.2 C L 67 19 161/93 H Pulse Ox O2 Del Method O2 Flow Rate 08/06/24 08:00 96 Nasal Cannula 2 08/06/24 07:44 Nasal Cannula 2 08/06/24 07:13 08/06/24 05:50 94 Nasal Cannula 2 08/06/24 05:50 Nasal Cannula 2 08/06/24 05:12 93 Room Air 08/06/24 05:03 Room Air 08/06/24 05:02 95 Room Air 08/06/24 04:52 95 Room Air 08/06/24 02:38 96 08/06/24 02:19 96 08/06/24 01:39 97 08/06/24 01:00 97 Room Air Laboratory Results 08/06/24 08/06/24 08/06/24 Range/Units 07:12 07:10 05:09 WBC (4.8-10.8) K/ul RBC (4.70-6.10) M/uL Hgb (14.0-18.0) g/dl Hct (42.0-52.0) % MCV (80.0-100.0) fL MCH (25.0-34.0) pg MCHC (32.0-36.0) g/dL RDW Std Deviation (36.4-46.3) fL RDW Coeff of Adeola (11.5-14.5) % Plt Count (130-400) K/uL MPV (9.4-12.4) fL Immature Gran % (Auto) % Neut % (Auto) % Lymph % (Auto) % Bell % (Auto) % Eos % (Auto) % Baso % (Auto) % Neut # (Auto) (1.40-6.50) K/uL Lymph # (Auto) (1.20-3.40) K/uL Bell # (Auto) (0.11-0.59) K/uL Eos # (Auto) (0.00-0.50) K/uL Baso # (Auto) (0.00-0.20) K/uL Immature Gran # (Auto) (0.01-0.20) K/uL Sodium (136-145) mmol/L Potassium (3.5-5.1) mmol/L Chloride (98-107) mmol/L Carbon Dioxide (21-32) mmol/L Anion Gap (3-11) BUN (6-23) mg/dl Creatinine (0.6-1.4) mg/dl Est Cr Clr Drug Dosing ml/min Est GFR ( Amer) ml/min Est GFR (Non-Af Amer) ml/min BUN/Creatinine Ratio (10-20) Glucose (70-99(Fasting)) mg/dl POC Glucose 182 H 139 H (70-99) mg/dl Calcium (8.6-10.3) mg/dl Total Bilirubin (0.2-1.0) mg/dl AST (13-39) U/L ALT (7-52) U/L Alkaline Phosphatase (34-104) U/L Total Protein (6.0-8.3) gm/dl Albumin (3.4-5.0) gm/dl Globulin (2.5-4.0) gm/dl Albumin/Globulin Ratio (0.9-2) Nasal Screen MRSA (PCR) Negative (Negative) 08/06/24 Range/Units 01:20 WBC 14.12 H (4.8-10.8) K/ul RBC 4.97 (4.70-6.10) M/uL Hgb 14.5 (14.0-18.0) g/dl Hct 45.7 (42.0-52.0) % MCV 92.0 (80.0-100.0) fL MCH 29.2 (25.0-34.0) pg MCHC 31.7 L (32.0-36.0) g/dL RDW Std Deviation 44.4 (36.4-46.3) fL RDW Coeff of Adeola 13.2 (11.5-14.5) % Plt Count 307 (130-400) K/uL MPV 10.6 (9.4-12.4) fL Immature Gran % (Auto) 0.9 % Neut % (Auto) 72.1 % Lymph % (Auto) 17.8 % Bell % (Auto) 6.9 % Eos % (Auto) 2.0 % Baso % (Auto) 0.3 % Neut # (Auto) 10.18 H (1.40-6.50) K/uL Lymph # (Auto) 2.51 (1.20-3.40) K/uL Bell # (Auto) 0.98 H (0.11-0.59) K/uL Eos # (Auto) 0.28 (0.00-0.50) K/uL Baso # (Auto) 0.04 (0.00-0.20) K/uL Immature Gran # (Auto) 0.13 (0.01-0.20) K/uL Sodium 139 (136-145) mmol/L Potassium 4.3 (3.5-5.1) mmol/L Chloride 102 (98-107) mmol/L Carbon Dioxide 30 (21-32) mmol/L Anion Gap 7 (3-11) BUN 23 (6-23) mg/dl Creatinine 1.06 (0.6-1.4) mg/dl Est Cr Clr Drug Dosing 62.0 ml/min Est GFR ( Amer) 78.1 ml/min Est GFR (Non-Af Amer) 67.4 ml/min BUN/Creatinine Ratio 21.7 H (10-20) Glucose 157 H (70-99(Fasting)) mg/dl POC Glucose (70-99) mg/dl Calcium 9.5 (8.6-10.3) mg/dl Total Bilirubin 0.5 (0.2-1.0) mg/dl AST 15 (13-39) U/L ALT 21 (7-52) U/L Alkaline Phosphatase 60 (34-104) U/L Total Protein 6.8 (6.0-8.3) gm/dl Albumin 4.4 (3.4-5.0) gm/dl Globulin 2.4 L (2.5-4.0) gm/dl Albumin/Globulin Ratio 1.8 (0.9-2) Nasal Screen MRSA (PCR) (Negative) PG Care Time/CCT Total # of Minutes Spent Total Time Spent with Patient: Total time spent is greater than 50% in coordination of care (as documented) at patient's floor/unit and/or counseling patient: Coding Level of Care Code None Diagnoses Food impaction of esophagus T18.128A; W44.F3XA Encounter type: initial encounter (1) Food impaction of esophagus Encounter type: initial encounter Qualified Code(s): T18.128A - Food in esophagus causing other injury, initial encounter; W44.F3XA - Food entering into or through a natural orifice, initial encounter
--- NOTE | 2024-08-06 10:33 | Communication Note ---
Date of Service: August 06, 2024 Patient seen and examined H&P from 08/06/2024 reviewed Labs and radiology reviewed Status post EGD today with removal of food bolus Patient will need repeat EGD outpatient for dilation of stricture He is currently n.p.o. and will start clear liquid diet at lunchtime and advancement per GI recommendations Denies any nausea, vomiting, fever, chills, chest pain, shortness of breath or cough Continue IV antibiotics for possible pneumonitis/aspiration Leukocytosis likely related to steroids which patient received prior to procedure and also finished course of antibiotics and steroids 2 days ago for asthma exacerbation Social history: Patient is independent of ADLs. Lives at home with his . Denies tobacco use, alcohol use Discharge planning Home likely tomorrow if medically stable and tolerating oral diet without any issues Care plan discussed with patient, nursing staff
--- NOTE | 2024-08-06 16:46 | Electrocardiogram Report ---
Test Reason : Blood Pressure : */* mmHG Vent. Rate : 71 BPM Atrial Rate : 71 BPM P-R Int : 204 ms QRS Dur : 88 ms QT Int : 390 ms P-R-T Axes : 41 -22 -2 degrees QTcB Int : 423 ms Normal sinus rhythm with frequent PACs Minimal voltage criteria for LVH, may be normal variant Borderline ECG When compared with ECG of 15-Aug-2022 11:44, Premature atrial complexes are no longer Present Confirmed by Lukasz Wilson ([id number]) on 08/06/2024 4:46:38 PM Referred By: REFERRED SELF Confirmed By: Lukasz Wilson
[2024-08-06] MEDS: PANTOprazole 40 MG in SYRINGE 0 ML IV SCH (21:59)
[2024-08-06] MEDS: MELATONIN 3 MG TAB PO PRN (22:33)
[2024-08-07 04:27] VITALS: TEMP 97.7
[2024-08-07 07:58] LABS: Basophils # (auto) 0.02 K/uL (0.00-0.20); Basophils % (auto) 0.2 %; Eosinophils % (auto) 0.8 %; Hematocrit (blood only) 37.3 % (42.0-52.0); Hemoglobin 12.3 g/dl (14.0-18.0); Immature Granulocytes # (auto) 0.05 K/uL (0.01-0.20); Immature Granulocytes % (auto) 0.4 %; Lymphocytes # (auto) 2.44 K/uL (1.20-3.40); Lymphocytes % (auto) 20.1 %; Mean Corpuscular Hemoglobin 29.8 pg (25.0-34.0); Mean Corpuscular Volume 90.3 fL (80.0-100.0); Mean Platelet Volume 10.9 fL (9.4-12.4); Monocytes # (auto) 0.75 K/uL (0.11-0.59); Monocytes % (auto) 6.2 %; Neutrophils # (auto) 8.77 K/uL (1.40-6.50); Neutrophils % (auto) 72.3 %; Platelet Count 240 K/uL (130-400); RDW Coefficient of Variation 13.2 % (11.5-14.5); RDW Standard Deviation 43.6 fL (36.4-46.3); Red Blood Count 4.13 M/uL (4.70-6.10); White Blood Count 12.13 K/ul (4.8-10.8)
[2024-08-07 08:21] LABS: Albumin Globulin Ratio 1.7 (0.9-2); Albumin Level 3.4 gm/dl (3.4-5.0); BUN Creatinine Ratio 17.9 (10-20); Bilirubin,Total 0.5 mg/dl (0.2-1.0); Calcium 8.4 mg/dl (8.6-10.3); Creatinine Clr Calc Pharmacy 71.5 ml/min; Est GFR (African American) 89.1 ml/min; Est GFR (Non-African American) 76.9 ml/min; Potassium 3.8 mmol/L (3.5-5.1); Total Protein 5.4 gm/dl (6.0-8.3)
[2024-08-07 08:27] LABS: Estimated Average Glucose 169 mg/dl; Hemoglobin A1C 7.5 % (4.5-5.6)
[2024-08-07] MEDS: POTASSIUM CHLORIDE CRTAB 20 MEQ TABCR PO STA (10:02)
[2024-08-07 11:40] VITALS: PULSE 79; RESP 16; O2SAT 98
[2024-08-07 13:02] VITALS: BP 138/82
--- NOTE | 2024-08-07 13:07 | Discharge Summary ---
Discharge Summary Date of Service August 07, 2024 Principal Dx & Hospital Course #1 = Principal Diagnosis (1) Food impaction of esophagus: (2) Esophageal stenosis: (3) Moderate persistent asthma: (4) Premature ventricular contractions: (5) Diabetic peripheral neuropathy: (6) DM type 2 (diabetes mellitus, type 2): Plan 79-year-old male with past medical history of type 2 diabetes mellitus with retinopathy, asthma with allergic rhinitis, history of esophageal stenosis status post dilation in the past, history of PVCs and PACs, hypothyroidism who presented to the hospital after piece of chicken was stuck and patient was u nable to swallow. He had an EGD done by [employer] [facility] Dr. Pisano with removal of food bolus. GI was able to pass the scope but noticed an esophageal stricture and recommended the patient needs to follow-up with GI as outpatient for repeat EGD for dilation of the stricture Patient's diet was advanced to clear liquids and then to regular diet with soft chew foods and he is tolerating oral diet without any issues. I have advised the patient to stay on soft diet till he follows with GI as an outpatient. He will continue with his PPI Initially was thought the patient may have aspiration pneumonia/pneumonitis. Patient is afebrile. White count elevation is likely from recent steroid use and also given steroids prior to procedure. Lungs are clear to auscultation and chest x-ray did not show any evidence of consolidation or infiltrates. I have stopped the antibiotics and asked him to follow-up with PCP as an outpatient A1c is 7.5. Diabetes control is not the best. Patient is on metformin. I have asked him to follow-up with his PCP for diabetes management He will continue with levothyroxine for hypothyroidism Patient seen and examined today and he is stable for discharge home with follow- up plan as listed in discharge instructions. I gone over the discharge care plan, medications and follow-up with the patient in great detail and answered all his questions. This discharge took greater than 30 minutes to coordinate Admission HPI Per Admitting Provider The patient is a 79-year-old male with a past medical history including diabetes mellitus, diabetic retinopathy of right eye, hypothyroidism, diabetic peripheral neuropathy, moderate persistent asthma, allergic rhinitis, H. pylori infection, esophageal stenosis, vitamin D deficiency, PVCs, PACs, eosinophilia, subclavian vein stenosis status post trauma, lumbar degenerative disc disease and chronic sinusitis. The patient presents to the emergency department with complaint of inability to swallow foods or liquids, including saliva, after having a piece of chicken get stuck in his esophagus at about 6 PM this evening. He was taken to the endoscopy suite by gastroenterology Dr. Schneider, where the food bolus was removed, and plan to admit patient to telemetry for monitoring. Postprocedure, the patient primarily is feeling mildly sedated, he has no complaints. Discharge Exam General: No acute distress Psych: Awake and alert HEENT: Anicteric sclera, moist oral mucosa CVS: Regular rate and rhythm Lungs: Bilateral air entry, no wheezing noted Abdomen: Soft, nontender, no rebound, no guarding Ext: No lower extremity edema, no calf tenderness Neuro: No focal motor deficits noted Discharge Plan Discharge Items Patient Disposition: Home - Self-Care Reason For Visit: FOOD BOLUS S/P EGD Discharge Diagnosis: #Food impaction #Esophageal stricture #Type 2 diabetes mellitus #Hypothyroidism #Asthma Condition on Discharge: Good Activity: Resume your previous activity Non-emergency contact: Primary Care Provider Call non-emergency contact if: you have any medication questions, your symptoms worsen and you have a fever Follow-up/Referrals: Barrie Zambrano DO [Physician] - Alicia Yates MD [Primary Care Provider] - Diet: Carb Consistent or DM2 and Heart Healthy Diet Texture: Easy to Chew Diet Comment: Please eat soft foods for now which are easy to chew until you see GI Addtl Attending Provider Instructions: DISCHARGE INSTRUCTION TO PATIENT/FAMILY: Follow-up with your primary care provider within 1 week regarding: Posthospital discharge, medication review, medication refills and follow-up on all your medical problems, referral to [facility] for esophageal stricture, type 2 diabetes mellitus Please take all your discharge medications, discharge information and discharge instructions to all your doctors appointments. Avoid all NSAIDs including ibuprofen, Motrin, Advil, Aleve, naproxen, meloxicam, Toradol, diclofenac Follow-up with university tutor in 1 week's time regarding esophageal stricture. He will require a repeat endoscopy for dilation of the esophageal stricture Your hemoglobin A1c is 7.5. You need better diabetes control and please follow- up with your primary care provider for diabetes management. You may need referral to endocrinology through PCP for diabetes management. Labs through PCP in 1 week: CBC, CMP, MG, Vitamin B12 Pending Studies at Discharge: No Stand-Alone Forms: My [facility], Smoking Cessation Medications and DC Order Prescriptions: Continued epinephrine 0.3 mg/0.3 mL auto-injector 0.3 mg IM ONCE PRN (Reason: Anaphylaxis) montelukast [Singulair] 10 mg tablet 10 mg PO PM Qty: 30 11RF Rx Instructions: Patient only needs a 15 day supply; [facility] al[facility]erol sulfate [Ventolin HFA] 90 mcg/actuation HFA aerosol inhaler 2 puff inhalation Q4H PRN (Reason: Shortness Of Breath) Qty: 1 11RF albuterol sulfate 2.5 mg /3 mL (0.083 %) solution for nebulization 2.5 mg inhalation Q4H PRN (Reason: shortness of breath or wheezing) Qty: 75 5RF ipratropium bromide 0.02 % solution 0.5 mg inhalation Q4H PRN (Reason: shortness of breath or wheezing) Qty: 75 5RF budesonide-formoterol [Symbicort] 160-4.5 mcg/actuation HFA aerosol inhaler 2 puff INHALATION BID Qty: 10.2 6RF Rx Instructions: WITH A RINSE OF MOUTH AFTERWARDS. fluticasone propionate 50 mcg/actuation spray,suspension 2 spray intranasal DAILY Qty: 16 3RF pantoprazole 40 mg tablet,delayed release (DR/EC) See Rx Instructions .ROUTE .COMPLEX Qty: 30 5RF Dose Instruction: Take 1 tablet by mouth once daily Rx Instructions: Take 1 tablet by mouth once daily levothyroxine 150 mcg tablet See Rx Instructions .ROUTE .COMPLEX Qty: 90 1RF Dose Instruction: Take 1 tablet by mouth once daily Rx Instructions: Take 1 tablet by mouth once daily metformin 1,000 mg tablet See Rx Instructions .ROUTE .COMPLEX Qty: 180 1RF Dose Instruction: Take 1 tablet by mouth twice daily Rx Instructions: Take 1 tablet by mouth twice daily zinc gluconate-vitamin C 1 dose PO QPM cholecalciferol (vitamin D3) 1 dose PO QDL multivitamin Tablet 1 tab PO QPM Discontinued prednisone 10 mg tablet 10 mg PO .COMPLEX Qty: 30 0RF Rx Instructions: 10 mg PO 4qdx3;3qdx3;2qdx3;1qdx3 azithromycin 250 mg tablet See Rx Instructions PO .COMPLEX Qty: 6 1RF Rx Instructions: take 500 mg today (day 1), then 250 mg for 4 days (days 2-5) PO Discharge Orders: Discharge Order (Routine); Ordered 08/07/24 Ordered By: Miah Arce/Other Patient Handouts: Managing Type 2 Diabetes Admission Data Admit Date/Time: 08/06/24 05:16 Attending Provider: Miah Perez Admit Provider: William James Primary Care Provider: Alicia Yates Other Providers: William James; Demond Schneider Hospital Stay Data Consultations 08/06/24 04:45 ED Decision to Admit Stat 08/06/24 05:20 Consult Gastroenterology Routine Procedures Performed Operation Date: 08/06/24 03:30 Actual Procedures p EGD Dilatation(Not Applicable) - Demond Schneider MD Diagnostic Imagining Performed 08/06/24 08/06/24 08/06/24 01:20 05:09 07:10 WBC 14.12 H RBC 4.97 Hgb 14.5 Hct 45.7 MCV 92.0 MCH 29.2 MCHC 31.7 L RDW Std Deviation 44.4 RDW Coeff of Adeola 13.2 Plt Count 307 MPV 10.6 Immature Gran % (Auto) 0.9 Neut % (Auto) 72.1 Lymph % (Auto) 17.8 Bremer % (Auto) 6.9 Eos % (Auto) 2.0 Baso % (Auto) 0.3 Neut # (Auto) 10.18 H Lymph # (Auto) 2.51 Bremer # (Auto) 0.98 H Eos # (Auto) 0.28 Baso # (Auto) 0.04 Immature Gran # (Auto) 0.13 Sodium 139 Potassium 4.3 Chloride 102 Carbon Dioxide 30 Anion Gap 7 BUN 23 Creatinine 1.06 Est Cr Clr Drug Dosing 62.0 Est GFR ( Amer) 78.1 Est GFR (Non-Af Amer) 67.4 BUN/Creatinine Ratio 21.7 H Glucose 157 H POC Glucose 139 H Estimat Average Glucose Hemoglobin A1c Calcium 9.5 Magnesium Total Bilirubin 0.5 AST 15 ALT 21 Alkaline Phosphatase 60 Total Protein 6.8 Albumin 4.4 Globulin 2.4 L Albumin/Globulin Ratio 1.8 Nasal Screen MRSA (PCR) Negative 08/06/24 08/06/24 08/06/24 07:12 11:21 16:24 WBC RBC Hgb Hct MCV MCH MCHC RDW Std Deviation RDW Coeff of Adeola Plt Count MPV Immature Gran % (Auto) Neut % (Auto) Lymph % (Auto) Bremer % (Auto) Eos % (Auto) Baso % (Auto) Neut # (Auto) Lymph # (Auto) Bremer # (Auto) Eos # (Auto) Baso # (Auto) Immature Gran # (Auto) Sodium Potassium Chloride Carbon Dioxide Anion Gap BUN Creatinine Est Cr Clr Drug Dosing Est GFR ( Amer) Est GFR (Non-Af Amer) BUN/Creatinine Ratio Glucose POC Glucose 182 H 216 H 183 H Estimat Average Glucose Hemoglobin A1c Calcium Magnesium Total Bilirubin AST ALT Alkaline Phosphatase Total Protein Albumin Globulin Albumin/Globulin Ratio Nasal Screen MRSA (PCR) 08/06/24 08/07/24 08/07/24 19:33 07:19 07:23 WBC 12.13 H RBC 4.13 L Hgb 12.3 L Hct 37.3 L MCV 90.3 MCH 29.8 MCHC 33.0 RDW Std Deviation 43.6 RDW Coeff of Adeola 13.2 Plt Count 240 MPV 10.9 Immature Gran % (Auto) 0.4 Neut % (Auto) 72.3 Lymph % (Auto) 20.1 Bremer % (Auto) 6.2 Eos % (Auto) 0.8 Baso % (Auto) 0.2 Neut # (Auto) 8.77 H Lymph # (Auto) 2.44 Bremer # (Auto) 0.75 H Eos # (Auto) 0.10 Baso # (Auto) 0.02 Immature Gran # (Auto) 0.05 Sodium 138 Potassium 3.8 Chloride 105 Carbon Dioxide 26 Anion Gap 7 BUN 17 Creatinine 0.95 Est Cr Clr Drug Dosing 71.5 Est GFR ( Amer) 89.1 Est GFR (Non-Af Amer) 76.9 BUN/Creatinine Ratio 17.9 Glucose 234 H POC Glucose 146 H 243 H Estimat Average Glucose 169 Hemoglobin A1c 7.5 H Calcium 8.4 L Magnesium 2.0 Total Bilirubin 0.5 AST 13 ALT 17 Alkaline Phosphatase 43 Total Protein 5.4 L D Albumin 3.4 Globulin 2.0 L Albumin/Globulin Ratio 1.7 Nasal Screen MRSA (PCR) 08/07/24 11:25 WBC RBC Hgb Hct MCV MCH MCHC RDW Std Deviation RDW Coeff of Adeola Plt Count MPV Immature Gran % (Auto) Neut % (Auto) Lymph % (Auto) Bremer % (Auto) Eos % (Auto) Baso % (Auto) Neut # (Auto) Lymph # (Auto) Bremer # (Auto) Eos # (Auto) Baso # (Auto) Immature Gran # (Auto) Sodium Potassium Chloride Carbon Dioxide Anion Gap BUN Creatinine Est Cr Clr Drug Dosing Est GFR ( Amer) Est GFR (Non-Af Amer) BUN/Creatinine Ratio Glucose POC Glucose 125 H Estimat Average Glucose Hemoglobin A1c Calcium Magnesium Total Bilirubin AST ALT Alkaline Phosphatase Total Protein Albumin Globulin Albumin/Globulin Ratio Nasal Screen MRSA (PCR) Chest X-Ray 08/06/24 05:12 XR chest 1V portable CLINICAL HISTORY: hypoxia TECHNIQUE: Single frontal radiograph of the chest was obtained. Comparison: Comparison is made to chest radiograph 08/15/2022 FINDINGS: No lines and tubes are seen. Left clavicular hardware is noted. Cardiomegaly is noted. Linear densities in the right lung base are compatible with atelectasis. There is prominence of pulmonary vasculature. No evidence of pleural effusion or pneumothorax. IMPRESSION: Cardiomegaly and mild pulmonary edema. ACT 112: Negative or not required by law. Electronically signed by: Ghanshyam Fonseca M.D. 08/06/2024 6:55 AM Pending Results Patient Have Any Pending Studies at Discharge: No Discharge Instructions Given to Patient (Per Discharging Provider) DISCHARGE INSTRUCTION TO PATIENT/FAMILY: Follow-up with your primary care provider within 1 week regarding: Posthospital discharge, medication review, medication refills and follow-up on all your medical problems, referral to [employer] [facility] for esophageal stricture, type 2 diabetes mellitus Please take all your discharge medications, discharge information and discharge instructions to all your doctors appointments. Avoid all NSAIDs including ibuprofen, Motrin, Advil, Aleve, naproxen, meloxicam, Toradol, diclofenac Follow-up with university tutor in 1 week's time regarding esophageal stricture. He will require a repeat endoscopy for dilation of the esophageal stricture Your hemoglobin A1c is 7.5. You need better diabetes control and please follow- up with your primary care provider for diabetes management. You may need referral to endocrinology through PCP for diabetes management. Labs through PCP in 1 week: CBC, CMP, MG, Vitamin B12 Total Time Total Time Spent Total Time Spent (In Minutes): 35 minutes Total Time Includes: Examination of the Patient, Discharge Planning and Medication Reconciliation Coding Level of Care Code 74639 INP/OBS DISCH >30 MIN Diagnoses Food impaction of esophagus T18.128A; W44.F3XA Encounter type: initial encounter Esophageal stenosis K22.2 Moderate persistent asthma J45.40 Premature ventricular contractions I49.3 Diabetic peripheral neuropathy E11.42 DM type 2 (diabetes mellitus, type 2) E11.9
== END 2024-08-07 14:46 | disposition home or self-care (01) | DRG 328 ==
LOC: ED 00:57 → 2S 03:29 → SUATTDRO 05:16